=== PATIENT | male | born 1955 | race Hispanic/Latino ===

== ENCOUNTER 2019-12-06 21:16 | Emergency (ER) | payer MEDICAID, OTHER ==
[2019-12-06] MEDS ORDERED: predniSONE 20 MG TAB PO ONE (22:31)
--- NOTE | 2019-12-06 22:31 | Emergency Department Report ---
ED Shortness of Breath HPI - General Chief Complaint: Dyspnea/Respdistress Stated Complaint: HTN Time Seen by Provider: 12/06/19 22:18 Source: EMS Mode of arrival: Stretcher Limitations: No Limitations - History of Present Illness Initial Comments: Mr. Christensen is a 63 yo male with hx of COPD on 2 liters [place] oxygen supplementation who presents with shortness of breath today. [place] like a panic attack. [place] like he could not breath. Has chronic cough. Has chronic sputum production. No wheezing. No chest pain. No hx of HTN. NO hx of cardiac dz. For 2 weeks, Mr. Christensen has had left eye redness with discharge. Received albuterol per EMS. Feels better at this time. Pulmonoloist Dr. Adriana DOUGLAS Complaint: shortness of breath -: Gradual, days(s) (1) Severity: severe Consistency: now resolved Improves With: bronchodilators Known History Of: COPD Associated Symptoms: other (Eye redness discharge) Treatments Prior to Arrival: oxygen, bronchodilator - Related Data Previous Rx's Medication Instructions Recorded Last Taken Type Arformoterol Nebu [Brovana Nebu] 15 mcg IH Q12HRT 30 Days ml 11/03/15 1 Day Ago Rx ~12/05/19 Ipratropium/Albuterol Sulfate 1 ampul IH Q4HRT PRN #10 ampul.neb 11/03/15 1 Day Ago Rx [DUONEB *Not for PRN Use*] ~12/05/19 Doxycycline Hyclate 100 mg PO BID 10 Days #20 tablet. 12/06/19 Unknown Rx Polymyxin B Sulf/Trimethoprim 1 drop OP Q3H 7 Days #1 bottle 12/06/19 Unknown Rx [Polytrim Eye Drops] Prednisone [predniSONE 10 mg 10 mg PO .TAPER #1 tab.ds.pk 12/06/19 Unknown Rx (6-Day Pack, 21 Tabs)] Allergies Allergy/AdvReac Type Severity Reaction Status Date / Time No Known Allergies Allergy Verified 12/06/19 21:46 ED Review of Systems ROS: Stated complaint: HTN Other details as noted in HPI Comment: All other systems reviewed and negative Constitutional: denies: fever, malaise Respiratory: shortness of breath. denies: cough, wheezing Cardiovascular: denies: chest pain Gastrointestinal: denies: abdominal pain Neurological: denies: headache ED Past Medical Hx - Past Medical History Previous Medical History?: Yes Hx Congestive Heart Failure: No Hx Diabetes: No Hx Asthma: No Hx COPD: Yes Hx HIV: No - Surgical History Past Surgical History?: No - Social History Smoking Status: Former Smoker Substance Use Type: None - Medications Home Medications: Home Medications Medication Instructions Recorded Confirmed Last Taken Type Arformoterol Nebu [Brovana Nebu] 15 mcg IH Q12HRT 30 Days ml 11/03/15 12/06/19 1 Day Ago Rx ~12/05/19 Ipratropium/Albuterol Sulfate 1 ampul IH Q4HRT PRN #10 ampul.neb 11/03/15 12/06/19 1 Day Ago Rx [DUONEB *Not for PRN Use*] ~12/05/19 Doxycycline Hyclate 100 mg PO BID 10 Days #20 tablet. 12/06/19 Unknown Rx Polymyxin B Sulf/Trimethoprim 1 drop OP Q3H 7 Days #1 bottle 12/06/19 Unknown Rx [Polytrim Eye Drops] Prednisone [predniSONE 10 mg 10 mg PO .TAPER #1 tab.ds.pk 12/06/19 Unknown Rx (6-Day Pack, 21 Tabs)] ED Physical Exam - General Limitations: No Limitations General appearance: alert, in no apparent distress, other (Speaking full sentences with mild work of breathing) - Head Head exam: Present: atraumatic, normocephalic - Eye Eye exam: Present: normal appearance - ENT ENT exam: Present: mucous membranes moist - Neck Neck exam: Present: normal inspection - Respiratory Respiratory exam: Present: normal lung sounds bilaterally. Absent: respiratory distress, wheezes, rales, rhonchi, chest wall tenderness, accessory muscle use, decreased breath sounds, prolonged expiratory - Cardiovascular Cardiovascular Exam: Present: normal rhythm, tachycardia, normal heart sounds. Absent: systolic murmur, diastolic murmur, rubs, gallop - GI/Abdominal GI/Abdominal exam: Present: soft. Absent: distended, tenderness, guarding, rebound - Rectal Rectal exam: Present: deferred - Neurological Exam Neurological exam: Present: alert, oriented X3 - Psychiatric Psychiatric exam: Present: normal affect, normal mood - Skin Skin exam: Present: warm, dry, intact, normal color. Absent: rash ED Course Vital Signs 12/06/19 12/06/19 12/06/19 21:28 21:31 21:39 Pulse Rate 97 H 105 H 103 H Respiratory 38 H 33 H 26 H Rate Blood Pressure Blood Pressure 190/93 [Left] O2 Sat by Pulse 99 99 Oximetry 12/06/19 12/06/19 12/06/19 21:45 22:01 22:15 Pulse Rate 104 H 101 H 96 H Respiratory 33 H 32 H 33 H Rate Blood Pressure 190/93 183/78 183/78 Blood Pressure [Left] O2 Sat by Pulse 100 97 98 Oximetry 12/06/19 12/06/19 12/06/19 22:31 22:45 23:01 Pulse Rate 98 H 93 H 91 H Respiratory 28 H 23 27 H Rate Blood Pressure 130/70 130/70 120/77 Blood Pressure [Left] O2 Sat by Pulse 89 90 89 Oximetry 12/06/19 12/06/19 23:15 23:31 Pulse Rate 93 H 92 H Respiratory 17 24 Rate Blood Pressure 120/77 120/77 Blood Pressure [Left] O2 Sat by Pulse 90 90 Oximetry ED Medical Decision Making - Lab Data Result diagrams: 12/06/19 22:41 12/06/19 22:41 Critical care attestation.: If time is entered above; I have spent that time in minutes in the direct care of this critically ill patient, excluding procedure time. ED Disposition Clinical Impression: COPD with acute exacerbation, Acute conjunctivitis of left eye Disposition: DC-01 TO HOME OR SELFCARE Is pt being admited?: No Does the pt Need Aspirin: No Condition: Stable Instructions: Conjunctivitis (ED), Chronic Obstructive Pulmonary Disease (ED) Prescriptions: Doxycycline Hyclate 100 mg PO BID 10 Days #20 tablet.dr Polymyxin B Sulf/Trimethoprim [Polytrim Eye Drops] 1 drop OP Q3H 7 Days #1 bottle Prednisone [predniSONE 10 mg (6-Day Pack, 21 Tabs)] 10 mg PO .TAPER #1 tab.ds.pk Referrals: RADHA WHITE MD [Staff Physician] - 3-5 Days YESIKA MCCONNELL MD [Staff Physician] - 3-5 Days
[2019-12-06] MEDS ORDERED: DOXYCYCLINE 100 MG CAPSULE PO ONE (22:32)
--- NOTE | 2019-12-06 22:55 | XRay Report ---
CHEST 1 VIEW INDICATION: Dyspnea. COMPARISON: None. FINDINGS: Support devices: None. Heart: Normal. Lungs/Pleura: Lungs are hyperexpanded. There is scarring in the left lower lung laterally. No consoli dation, significant effusion, or pneumothorax. IMPRESSION: 1. No acute findings. Signer Name: Ej Veliz MD Signed: 12/06/2019 10:51 PM Workstation Name: [email or web address]
[2019-12-06 22:56] LABS: Basophils % (Auto) 0.3 % (0.0-1.8); Eosinophils # (Auto) 0.1 K/mm3 (0.0-0.4); Eosinophils % (Auto) 0.8 % (0.0-4.3); Hematocrit 43.9 % (35.5-45.6); Lymphocytes # (Auto) 0.6 K/mm3 (1.2-5.4); Lymphocytes % (Auto) 5.3 % (13.4-35.0); Mean Corpuscular HGB Conc 32 % (32-34); Mean Corpuscular Volume 93 fl (84-94); Monocytes # (Auto) 0.7 K/mm3 (0.0-0.8); Monocytes % (Auto) 5.8 % (0.0-7.3); Platelet Count 252 K/mm3 (140-440); Red Blood Count 4.75 M/mm3 (3.65-5.03); Red Cell Distribution Width 14.3 % (13.2-15.2)
[2019-12-06 23:10] LABS: Alanine Aminotransferase 13 units/L (7-56); Albumin 4.3 g/dL (3.9-5); BUN/Creatinine Ratio 18; Blood Urea Nitrogen 18 mg/dL (9-20); Hemolysis Index 10
[2019-12-07 00:20] VITALS: BP 145/67
== END 2019-12-07 00:19 | disposition home or self-care (01) ==
LOC: ED 21:16
DX: J44.1 Chronic obstructive pulmonary disease with (acute) exacerbation (principal); H10.32 Unspecified acute conjunctivitis, left eye; Z87.891 Personal history of nicotine dependence; Z79.899 Other long term (current) drug therapy
CPT/HCPCS: 36415; 71045; 80053; 85025; 99284; J7512

== ENCOUNTER 2020-08-23 15:21 | Emergency (ER) | payer MEDICAID ==
[2020-08-23 15:30] VITALS: BP 189/85
[2020-08-23 16:10] LABS: Basophils % (Auto) 0.5 % (0.0-1.8); Eosinophils % (Auto) 0.5 % (0.0-4.3); Hematocrit 40.9 % (35.5-45.6); Lymphocytes # (Auto) 0.7 K/mm3 (1.2-5.4); Lymphocytes % (Auto) 8.8 % (13.4-35.0); Mean Corpuscular HGB Conc 32 % (32-34); Mean Corpuscular Volume 101 fl (84-94); Monocytes # (Auto) 0.7 K/mm3 (0.0-0.8); Monocytes % (Auto) 9.1 % (0.0-7.3); Platelet Count 208 K/mm3 (140-440); Red Blood Count 4.06 M/mm3 (3.65-5.03); Red Cell Distribution Width 17.5 % (13.2-15.2)
[2020-08-23 16:15] LABS: BUN/Creatinine Ratio 22; Blood Urea Nitrogen 24 mg/dL (9-20); Calcium 9.5 mg/dL (8.4-10.2); Hemolysis Index 11
--- NOTE | 2020-08-23 16:39 | XRay Report ---
CHEST 2 VIEWS INDICATION / CLINICAL INFORMATION: gen weakness. COMPARISON: Chest x-ray 12/06/2019. CTA abdomen and pelvis on 05/20/2020. FINDINGS: SUPPORT DEVICES: None. HEART / MEDIASTINUM: There is mild cardiomegaly. LUNGS / PLEURA: There is mild interstitial pulmonary edema. There is a stable subpleural cyst and lef t lower lung. No pneumothorax. ADDITIONAL FINDINGS: No significant additional findings. IMPRESSION: 1. Findings likely indicating CHF with mild cardiomegaly and mild interstitial edema. Signer Name: Jude Otto MD Signed: 08/23/2020 4:35 PM Workstation Name: [id number]
== END 2020-08-23 16:30 | disposition left against medical advice (07) ==
LOC: ED 15:21
DX: R44.3 Hallucinations, unspecified (principal); Z53.21 Procedure and treatment not carried out due to patient leaving prior to being seen by health care provider
CPT/HCPCS: 36415; 71046; 80048; 85025; 93005

== ENCOUNTER 2020-08-27 08:38 | Inpatient (IN) | payer MEDICAID ==
[2020-08-27] MEDS ORDERED: methylPREDNISolone Sod Succinate 125 MG/2 ML INJ IV ONE (09:33)
--- NOTE | 2020-08-27 09:33 | Emergency Department Report ---
HPI - General Chief Complaint: Dyspnea/Respdistress Time Seen by Provider: 08/27/20 09:10 - HPI HPI: This is a 64-year-old male who presents to the emergency department via EMS with a complaint of some shortness of breath, dizziness, hallucinations, and a fall. Patient says that when his oxygen gets low that he starts to hallucinate and gets dizzy. Earlier today he had a fall in which he hit his head on his bedside dresser. The patient has a history of COPD for which he has home oxygen dependent on 2 L via nasal cannula. However the patient says that he is not sure whether the oxygen machine at home is working appropriately. The shortness of breath has been going on for the past 3 to 4 days. He has been using his home inhaler and nebulizer without much relief. He denies any chest pain, cough, fever, headache, lower extremity swelling. The patient's crystal report developer is Dr. Dill. No recent travel or sick contacts at home. No known exposure to anyone with COVID-19. ED Past Medical Hx - Past Medical History Previous Medical History?: Yes Hx Congestive Heart Failure: No Hx Diabetes: No Hx Asthma: No Hx COPD: Yes Hx HIV: No - Social History Smoking Status: Former Smoker Substance Use Type: None - Medications Home Medications: Home Medications Medication Instructions Recorded Confirmed Last Taken Type Arformoterol Nebu [Brovana Nebu] 15 mcg IH Q12HRT 30 Days ml 11/03/15 12/06/19 1 Day Ago Rx ~12/05/19 Ipratropium/Albuterol Sulfate 1 ampul IH Q4HRT PRN #10 ampul.neb 11/03/15 12/06/19 1 Day Ago Rx [DUONEB *Not for PRN Use*] ~12/05/19 Doxycycline Hyclate 100 mg PO BID 10 Days #20 tablet. 12/06/19 Unknown Rx Polymyxin B Sulf/Trimethoprim 1 drop OP Q3H 7 Days #1 bottle 12/06/19 Unknown Rx [Polytrim Eye Drops] Prednisone [predniSONE 10 mg 10 mg PO .TAPER #1 tab.ds.pk 12/06/19 Unknown Rx (6-Day Pack, 21 Tabs)] ED Review of Systems ROS: Stated complaint: SOB X4 HOURS Other details as noted in HPI Comment: All other systems reviewed and negative Constitutional: denies: chills, fever Eyes: denies: eye pain, vision change ENT: denies: ear pain, throat pain Respiratory: shortness of breath, wheezing Cardiovascular: denies: chest pain, palpitations, edema Gastrointestinal: denies: abdominal pain, vomiting Genitourinary: denies: dysuria, discharge Musculoskeletal: denies: back pain, arthralgia Skin: denies: rash, lesions Neurological: other (dizziness/lightheaded). denies: headache Physical Exam - Physical Exam Vital Signs: Vital Signs 08/27/20 09:10 Temperature 99.1 F Pulse Rate 71 Respiratory 20 Rate Blood Pressure 140/69 Blood Pressure 140/69 [Right] O2 Sat by Pulse 96 Oximetry Physical Exam: GENERAL: The patient is well-developed well-nourished. HENT: Normocephalic. Atraumatic. Patient has moist mucous membranes. EYES: Extraocular motions are intact. NECK: Supple. Trachea is midline. CHEST/LUNGS: Mild wheezing throughout the chest. No tachypnea or accessory muscle use. There is no respiratory distress noted. HEART/CARDIOVASCULAR: Regular. There is no tachycardia. There is no murmur. ABDOMEN: Abdomen is soft, nontender. Patient has normal bowel sounds. SKIN: Skin is warm and dry. NEURO: The patient is awake, alert, and oriented. The patient is cooperative. The patient has no focal neurologic deficits. Normal speech. MUSCULOSKELETAL: There is no tenderness or deformity. There is no limitation range of motion. ED Course Vital Signs 08/27/20 09:10 Temperature 99.1 F Pulse Rate 71 Respiratory 20 Rate Blood Pressure 140/69 Blood Pressure 140/69 [Right] O2 Sat by Pulse 96 Oximetry - Reevaluation(s) Reevaluation #1: 08/27/20 13:44 Lab Results 08/27/20 08/27/20 08/27/20 Range/Units 09:53 09:53 09:53 WBC 6.5 (4.5-11.0) K/mm3 RBC 4.16 (3.65-5.03) M/mm3 Hgb 13.2 (11.8-15.2) gm/dl Hct 42.8 (35.5-45.6) % MCV 103 H (84-94) fl MCH 32 (28-32) pg MCHC 31 L (32-34) % RDW 18.0 H (13.2-15.2) % Plt Count 197 (140-440) K/mm3 Lymph % (Auto) 8.2 L (13.4-35.0) % [place] % (Auto) 9.3 H (0.0-7.3) % Eos % (Auto) 0.8 (0.0-4.3) % Baso % (Auto) 0.4 (0.0-1.8) % Lymph # (Auto) 0.5 L (1.2-5.4) K/mm3 [place] # (Auto) 0.6 (0.0-0.8) K/mm3 Eos # (Auto) 0.0 (0.0-0.4) K/mm3 Baso # (Auto) 0.0 (0.0-0.1) K/mm3 Seg Neutrophils % 81.3 H (40.0-70.0) % Seg Neutrophils # 5.3 (1.8-7.7) K/mm3 PT 13.0 (12.2-14.9) Sec. INR 0.96 (0.87-1.13) ABG pH (7.350-7.450) pH Units ABG pCO2 mm Hg ABG pO2 (80.0-90.0) mm Hg ABG HCO3 (20.0-26.0) mmol/L ABG O2 Saturation (95.0-99.0) % ABG O2 Content (0.0-44) ABG Base Excess (-2.0-3.0) mmol/L ABG Hemoglobin (14.0-18.0) gm/dl ABG Carboxyhemoglobin (0.0-5.0) % ABG Methemoglobin (0.0-1.5) % Oxyhemoglobin (95.0-99.0) % FiO2 % Sodium 142 (137-145) mmol/L Potassium 4.8 (3.6-5.0) mmol/L Chloride 94.9 L (98-107) mmol/L Carbon Dioxide 48 H* D (22-30) mmol/L Anion Gap 4 mmol/L BUN 32 H (9-20) mg/dL Creatinine 1.1 (0.8-1.3) mg/dL Estimated GFR > 60 ml/min BUN/Creatinine Ratio 29 % Glucose 137 H (75-100) mg/dL Calcium 9.2 (8.4-10.2) mg/dL Troponin T 0.090 H (0.00-0.029) ng/mL NT-Pro-B Natriuret Pep 1916 H (0-900) pg/mL Triglycerides 129 (2-149) mg/dL Cholesterol 210 H (50-199) mg/dL LDL Cholesterol Direct 138 H (50-130) mg/dL HDL Cholesterol 48 (40-59) mg/dL Cholesterol/HDL Ratio 4.37 % // Range/Units 10:30 WBC (4.5-11.0) K/mm3 RBC (3.65-5.03) M/mm3 Hgb (11.8-15.2) gm/dl Hct (35.5-45.6) % MCV (84-94) fl MCH (28-32) pg MCHC (32-34) % RDW (13.2-15.2) % Plt Count (140-440) K/mm3 Lymph % (Auto) (13.4-35.0) % [place] % (Auto) (0.0-7.3) % Eos % (Auto) (0.0-4.3) % Baso % (Auto) (0.0-1.8) % Lymph # (Auto) (1.2-5.4) K/mm3 [place] # (Auto) (0.0-0.8) K/mm3 Eos # (Auto) (0.0-0.4) K/mm3 Baso # (Auto) (0.0-0.1) K/mm3 Seg Neutrophils % (40.0-70.0) % Seg Neutrophils # (1.8-7.7) K/mm3 PT (12.2-14.9) Sec. INR (0.87-1.13) ABG pH 7.314 L (7.350-7.450) pH Units ABG pCO2 86.5 mm Hg ABG pO2 64.1 L (80.0-90.0) mm Hg ABG HCO3 42.9 H (20.0-26.0) mmol/L ABG O2 Saturation 93.4 L (95.0-99.0) % ABG O2 Content 16.3 (0.0-44) ABG Base Excess 13.1 H (-2.0-3.0) mmol/L ABG Hemoglobin 12.8 L (14.0-18.0) gm/dl ABG Carboxyhemoglobin 2.4 (0.0-5.0) % ABG Methemoglobin 0.7 (0.0-1.5) % Oxyhemoglobin 90.5 L (95.0-99.0) % FiO2 28 % Sodium (137-145) mmol/L Potassium (3.6-5.0) mmol/L Chloride (98-107) mmol/L Carbon Dioxide (22-30) mmol/L Anion Gap mmol/L BUN (9-20) mg/dL Creatinine (0.8-1.3) mg/dL Estimated GFR ml/min BUN/Creatinine Ratio % Glucose (75-100) mg/dL Calcium (8.4-10.2) mg/dL Troponin T (0.00-0.029) ng/mL NT-Pro-B Natriuret Pep (0-900) pg/mL Triglycerides (2-149) mg/dL Cholesterol (50-199) mg/dL LDL Cholesterol Direct (50-130) mg/dL HDL Cholesterol (40-59) mg/dL Cholesterol/HDL Ratio % - Consultations Consultation #1: 08/27/20 10:53 I spoke with ESVIN Godinez for [facility], in regards to the patients presentation and elevated troponin. As the patient is not having any chest pain and the troponin level of 0.09 it is positive but not excessively high, the patient does not need to be anticoagulated on heparin at this time. They will see the patient as a consult. - ABG Interpretation Ph: 7.314 PCO2: 86 PO2: 64 Bicarbonate: 42 Interpretation: respiratory acidosis, metabolic alkalosis, other (hypoxemia) ED Medical Decision Making - Lab Data Result diagrams: 08/27/20 09:53 08/27/20 09:53 - EKG Data -: EKG Interpreted by Me EKG shows normal: sinus rhythm, axis, intervals, QRS complexes, ST-T waves (T wave inversion to the lateral and inferior leads) Rate: normal - EKG Data When compared to previous EKG there are: no significant change Interpretation: unchanged when compared t (08/23/20) - Radiology Data Radiology results: report reviewed, image reviewed interpreted by me: Chest x-ray shows some areas of atelectasis and some mild interstitial fluid. No obvious pneumonia. No pneumothorax. CT HEAD WITHOUT CONTRAST INDICATION : Fall, head injury one day ago. TECHNIQUE: Axial imaging performed from the skull apex through the skull base without the use of contrast. Sagittal and coronal reformatted images. All CT scans at this location are performed using CT dose reduction for ALARA by means of automated exposure control. COMPARISON: None FINDINGS: Parenchyma: No acute intracranial hemorrhage or parenchymal abnormality. Ventricles: Ventricles are normal in size and appear symmetric. Bones: No acute osseous abnormality. Sinuses: Sinuses and mastoid air cells are clear. Soft tissues: Soft tissues including the orbits appear normal. IMPRESSION: No acute abnormality. - Medical Decision Making This patient presents to the emergency department with complaints of shortness of breath and feeling like his oxygen saturation has dropped. He complains of having some hallucinations. At the time of my examination the patient is awake and oriented. However there is a previous record from a few days ago, when the patient came to the emergency department but was not yet seen by one of the providers, with a triage note that says the patient's daughter has found him confused at times and has found him at strange locations within their home. The patient says that he had a fall earlier today and hit his head on the bedside dresser. He does have a small abrasion over his eye. CT scan of the head without contrast does not show any bleed, shift, mass, ischemia, skull fracture, or any other acute process. Chest x-ray does not show any pneumonia, pneumothorax and was read by radiology as showing no acute process. Patient's ABG is consistent with both metabolic alkalosis and respiratory acidosis, as well as hypoxemia. Patient is hypercapnic. Labs also show an elevated troponin level of 0.09 and an elevated proBNP of about 2000. Cardiology was contacted and consulted. Patient will be admitted to the hospital for further evaluation and treatment was accepted for admission by the hospitalist, Dr. Stanley. Critical Care Time: Yes Critical care time in (mins) excluding proc time.: 35 Critical care attestation.: If time is entered above; I have spent that time in minutes in the direct care of this critically ill patient, excluding procedure time. Critical care time w as spent on this patient in doing his initial evaluation, multiple reevaluations, ordering and interpretation of labs and imaging, discussion with the cardiology service and hospitalist service, multiple discussions with the patient. Critical Care Time: 35 minutes ED Disposition Clinical Impression: Acute exacerbation of chronic obstructive pulmonary disease (COPD), Hypoxemia, Acute on chronic respiratory failure with hypoxia and hypercapnia, Elevated troponin Hypertension Qualifiers: Hypertension type: essential hypertension Qualified Code(s): I10 - Essential (primary) hypertension Disposition: OP ADMIT IP TO THIS HOSP Is pt being admited?: Yes Condition: Serious Time of Disposition: 13:51
[2020-08-27] MEDS ORDERED: IPRATROPIUM/ALBUTEROL SULFATE 3 ML AMPUL.NEB IH ONE (09:34)
[2020-08-27 10:14] LABS: Basophils % (Auto) 0.4 % (0.0-1.8); Eosinophils % (Auto) 0.8 % (0.0-4.3); Lymphocytes # (Auto) 0.5 K/mm3 (1.2-5.4); Lymphocytes % (Auto) 8.2 % (13.4-35.0); Mean Corpuscular HGB Conc 31 % (32-34); Mean Corpuscular Volume 103 fl (84-94); Monocytes # (Auto) 0.6 K/mm3 (0.0-0.8); Monocytes % (Auto) 9.3 % (0.0-7.3); Platelet Count 197 K/mm3 (140-440); Red Blood Count 4.16 M/mm3 (3.65-5.03)
[2020-08-27 10:15] LABS: Hematocrit 42.8 % (35.5-45.6); Hemoglobin 13.2 gm/dl (11.8-15.2); INR 0.96 (0.87-1.13)
[2020-08-27 10:29] LABS: BUN/Creatinine Ratio 29; Blood Urea Nitrogen 32 mg/dL (9-20); Calcium 9.2 mg/dL (8.4-10.2); Hemolysis Index 2
[2020-08-27 10:39] LABS: ABG Base Excess 13.1 mmol/L (-2.0-3.0); ABG HCO3 42.9 mmol/L (20.0-26.0); ABG Methemoglobin 0.7 % (0.0-1.5); ABG Oxygen Saturation 93.4 % (95.0-99.0); ABG PCO2 86.5 mm Hg; ABG PH 7.314 pH Units (7.350-7.450); ABG PO2 64.1 mm Hg (80.0-90.0)
--- NOTE | 2020-08-27 10:43 | XRay Report ---
CHEST 1 VIEW INDICATION: SOB COMPARISON: 08/23/2020 FINDINGS: Support devices: None Heart: Stable. Lungs/Pleura: Interstitial edema has cleared. Parenchymal density in the left mid to lower lung is un changed from previous exams and thought to represent scarring. No pleural fluid. IMPRESSION: 1. Improvement, with no acute disease on today's exam. Signer Name: Christopher Hector MD Signed: 08/27/2020 10:38 AM Workstation Name: [email or web address]
[2020-08-27 10:51] LABS: Chol/HDL Ratio 4.37 %; HDL Cholesterol 48 mg/dL (40-59); LDL Cholesterol,Direct 138 mg/dL (50-130)
--- NOTE | 2020-08-27 10:58 | Cat Scan Report ---
CT HEAD WITHOUT CONTRAST INDICATION : Fall, head injury one day ago. TECHNIQUE: Axial imaging performed from the skull apex through the skull base without the use of con trast. Sagittal and coronal reformatted images. All CT scans at this location are performed using C T dose reduction for ALARA by means of automated exposure control. COMPARISON: None FINDINGS: Parenchyma: No acute intracranial hemorrhage or parenchymal abnormality. Ventricles: Ventricles are normal in size and appear symmetric. Bones: No acute osseous abnormality. Sinuses: Sinuses and mastoid air cells are clear. Soft tissues: Soft tissues including the orbits appear normal. IMPRESSION: No acute abnormality. Signer Name: Demetrius Lopez Jr, MD Signed: 08/27/2020 10:54 AM Workstation Name: [id number]
--- NOTE | 2020-08-27 12:15 | History and Physical Report ---
History of Present Illness Chief complaint: I am short of breath and I fell down History of present illness: 64 YO Male with COPD, Chronic Respiratory Failure on Home Oxygen, Obesity Hypoventilation Syndrome presents to ED for evaluation. Patient states that he has experienced shortness of breath, dizziness, weakness which was followed by a fall. Patient states that he has experienced shortness of breath, weakness, decreased exercise tolerance, orthopnea, paroxysmal nocturnal dyspnea over the past 3 to 4 days with persistent symptoms over the same timeframe. Patient reports lack of relief with increased nebulizer and inhaler use. EMS notified and upon arrival the patient was found to be in distress and subsequently transported to [facility] for further care and evaluation of the aforementioned symptoms. Patient seen and evaluated in the emergency department. All lab and imaging studies reviewed. The patient was found to have a pulse oximetry of 77% on room air which is consistent with acute hypoxemic respiratory failure. The patient was placed on increased supplemental oxygen with mild relief in sympt oms. Patient also found to have symptoms consistent with CHF decompensation as well as laboratory values consistent with type II NSTEMI. Cardiology team consulted. Patient admitted to telemetry and initiated on CHF protocol due to increased risk of cardiac decompensation. Patient denies fever, chills, palpitations, productive cough, skin rash, recent ill contacts, prolonged travel/immobility, unilateral leg pain, calf pain, individual/family history of DVT/PE/bleeding/blood clotting disorders, or known exposure to COVID-19. Prior admission on 10/26/2015 reviewed. All medication listed at time of admission has been reconciled. Advanced care planning conducted in the emergency department. Past History Past Medical History: COPD, other (See HPI) Past Surgical History: No surgical history, Other (Reviewed) Social history: single. denies: smoking, alcohol abuse Family history: hypertension Medications and Allergies Allergies Allergy/AdvReac Type Severity Reaction Status Date / Time No Known Allergies Allergy Verified 12/06/19 21:46 Home Medications Medication Instructions Recorded Confirmed Last Taken Type Arformoterol Nebu [Brovana Nebu] 15 mcg IH Q12HRT 30 Days ml 11/03/15 12/06/19 1 Day Ago Rx ~12/05/19 Ipratropium/Albuterol Sulfate 1 ampul IH Q4HRT PRN #10 ampul.neb 11/03/15 12/06/19 1 Day Ago Rx [DUONEB *Not for PRN Use*] ~12/05/19 Doxycycline Hyclate 100 mg PO BID 10 Days #20 tablet. 12/06/19 Unknown Rx Polymyxin B Sulf/Trimethoprim 1 drop OP Q3H 7 Days #1 bottle 12/06/19 Unknown Rx [Polytrim Eye Drops] Prednisone [predniSONE 10 mg 10 mg PO .TAPER #1 tab.ds.pk 12/06/19 Unknown Rx (6-Day Pack, 21 Tabs)] Review of Systems Constitutional: weakness, no weight loss, no weight gain, no fever, no chills Ears, nose, mouth and throat: no ear pain, no ear discharge, no decreased hearing, no nose pain, no nasal congestion Cardiovascular: orthopnea, syncope, shortness of breath, dyspnea on exertion, paroxysmal nocturnal dyspnea, decreased exercise tolerance, no palpitations Respiratory: no cough, no cough with sputum, no excessive sputum Gastrointestinal: no abdominal pain, no nausea, no vomiting, no diarrhea, no constipation Genitourinary Male: no hematuria, no flank pain, no discharge, no urinary frequency, no urinary hesitancy Rectal: no pain, no incontinence, no bleeding Musculoskeletal: no neck stiffness, no neck pain, no shooting arm pain, no arm numbness/tingling Integumentary: no rash, no pruritis, no redness, no sores, no wounds Neurological: no transient paralysis, no paralysis, no weakness, no parathesias, no numbness, no tingling Psychiatric: no memory loss, no change in sleep habits, no sleep disturbances, no insomnia, no hypersomnia, no suicidal ideation Endocrine: no cold intolerance, no heat intolerance, no polyphagia, no excessive thirst, no polydipsia, no nocturia Hematologic/Lymphatic: no easy bruising, no easy bleeding, no lymphadenopathy, no lymphedema Allergic/Immunologic: no urticaria, no wheezing, no anaphylaxis, no angioedema Exam - Constitutional Vitals: Temp Pulse Resp BP Pulse Ox 99.1 F 66 20 140/69 94 08/27/20 09:10 08/27/20 10:18 08/27/20 10:34 08/27/20 10:45 08/27/20 10:45 General appearance: Present: mild distress - EENT Eyes: Present: PERRL ENT: hearing intact, clear oral mucosa - Neck Neck: Present: supple, normal ROM - Respiratory Respiratory effort: labored, accessory muscle use Respiratory: bilateral: CTA, rales - Cardiovascular Heart Sounds: Present: S1 & S2. Absent: rub, click - Extremities Extremities: pulses symmetrical Extremity abnormal: edema Peripheral Pulses: within normal limits - Abdominal General gastrointestinal: Present: soft, non-tender, non-distended, normal bowel sounds Male genitourinary: Present: normal - Integumentary Integumentary: Present: clear, warm, dry - Musculoskeletal Musculoskeletal: gait normal, strength equal bilaterally - Psychiatric Psychiatric: appropriate mood/affect, intact judgment & insight - Neurologic Neurologic: CNII-XII intact, moves all extremities HEART Score - HEART Score Troponin: Troponin T 0.090 ng/mL (0.00-0.029) H 08/27/20 09:53 Results - Labs CBC & Chem 7: 08/27/20 09:53 08/27/20 09:53 Labs: Abnormal lab results 08/27/20 08/27/20 08/27/20 Range/Units 09:53 09:53 10:30 MCV 103 H (84-94) fl MCHC 31 L (32-34) % RDW 18.0 H (13.2-15.2) % Lymph % (Auto) 8.2 L (13.4-35.0) % [place] % (Auto) 9.3 H (0.0-7.3) % Lymph # (Auto) 0.5 L (1.2-5.4) K/mm3 Seg Neutrophils % 81.3 H (40.0-70.0) % ABG pH 7.314 L (7.350-7.450) pH Units ABG pO2 64.1 L (80.0-90.0) mm Hg ABG HCO3 42.9 H (20.0-26.0) mmol/L ABG O2 Saturation 93.4 L (95.0-99.0) % ABG Base Excess 13.1 H (-2.0-3.0) mmol/L ABG Hemoglobin 12.8 L (14.0-18.0) gm/dl Oxyhemoglobin 90.5 L (95.0-99.0) % Chloride 94.9 L (98-107) mmol/L Carbon Dioxide 48 H* D (22-30) mmol/L BUN 32 H (9-20) mg/dL Glucose 137 H (75-100) mg/dL Troponin T 0.090 H (0.00-0.029) ng/mL NT-Pro-B Natriuret Pep 1916 H (0-900) pg/mL Cholesterol 210 H (50-199) mg/dL LDL Cholesterol Direct 138 H (50-130) mg/dL Assessment and Plan - Patient Problems (1) Acute CHF (congestive heart failure) Current Visit: No Status: Acute Qualifiers: Heart failure type: systolic Qualified Code(s): I50.21 - Acute systolic (congestive) heart failure Plan to address problem: Strict I/O, monitor urine output every shift, daily weight, afterload reduction, blood pressure control, BNP, thyroid panel, magnesium level, echocardiogram ordered and is pending at time of admission, cardiology team consulted. (2) Acute on chronic respiratory failure with hypoxia and hypercapnia Current Visit: Yes Status: Acute Plan to address problem: Supplemental oxygen, pulse oximetry, chest x-ray, nebulizer therapy, noninvasive positive pressure ventilation as clinically indicated. (3) NSTEMI (non-ST elevated myocardial infarction) Current Visit: Yes Status: Acute Plan to address problem: Type II NSTEMI: Cardiology team consulted, serial cardiac enzymes, EKG, telemetry monitoring, morphine, submental oxygen, nitro, aspirin, supportive care. (4) Obesity hypoventilation syndrome Current Visit: Yes Status: Acute Plan to address problem: Supplemental oxygen, pulse oximetry, balanced diet, increase physical activity at discharge, outpatient pulmonary follow-up for sleep study. (5) DVT prophylaxis Current Visit: Yes Status: Acute Plan to address problem: SCD to bilateral lower extremities while in bed, patient is ambulatory (6) Advance care planning Current Visit: Yes Status: Acute Plan to address problem: Disease education conducted, patient is full code, prognosis discussed, care plan discussed, patient knowledges understanding and agreement with care plan.
[2020-08-27] MEDS ORDERED: ONDANSETRON 4 MG/2 ML INJ IV PRN (12:19)
[2020-08-27] MEDS ORDERED: ACETAMINOPHEN 325 MG TAB PO PRN (12:19)
[2020-08-27] MEDS ORDERED: ALBUTEROL 2.5 MG/3 ML NEBU IH PRN (12:19)
--- NOTE | 2020-08-27 12:35 | Consultation ---
History of Present Illness Consult date: 08/27/20 Consult reason: elevated troponin History of present illness: This is a 64-year old male with chronic lung disease, COPD on home oxygen who presents to this hospital with shortness of breath, dizziness and confusion. Patient reports his portable oxygen tank showed he ran out of oxygen but he believe his machine was working appropriately. Patient also sustained a laceration above his right eyelid as he was getting out of bed, hitting his head on the dresser. Patient denies loss of consciousness. Head CT scan reports no acute abnormality and a chest x-ray is negative for acute process. A cardiac consultation has been requested for mild elevation of troponin measurement. Patient denies chest pain and denies palpitations. An ECG is sinus rhythm, with diffuse Twave abnormalities. No significant change from prior ECG tracings. There is no history of coronary artery disease. In fact, he underwent a cardiac cath at [facility] in April that showed no significant coronary artery disease, ejection fraction 60%. Medications and Allergies Allergies Allergy/AdvReac Type Severity Reaction Status Date / Time No Known Allergies Allergy Verified 12/06/19 21:46 Home Medications Medication Instructions Recorded Confirmed Last Taken Type Arformoterol Nebu [Brovana Nebu] 15 mcg IH Q12HRT 30 Days ml 11/03/15 12/06/19 1 Day Ago Rx ~12/05/19 Ipratropium/Albuterol Sulfate 1 ampul IH Q4HRT PRN #10 ampul.neb 11/03/15 12/06/19 1 Day Ago Rx [DUONEB *Not for PRN Use*] ~12/05/19 Doxycycline Hyclate 100 mg PO BID 10 Days #20 tablet. 12/06/19 Unknown Rx Polymyxin B Sulf/Trimethoprim 1 drop OP Q3H 7 Days #1 bottle 12/06/19 Unknown Rx [Polytrim Eye Drops] Prednisone [predniSONE 10 mg 10 mg PO .TAPER #1 tab.ds.pk 12/06/19 Unknown Rx (6-Day Pack, 21 Tabs)] Physical Examination Vital Signs Pulse Ox 96 08/27/20 09:01 Results 08/27/20 09:53 08/27/20 09:53 Coagulation 08/27/20 Range/Units 09:53 PT 13.0 (12.2-14.9) Sec. INR 0.96 (0.87-1.13) Lipids 08/27/20 Range/Units 09:53 Triglycerides 129 (2-149) mg/dL Cholesterol 210 H (50-199) mg/dL HDL Cholesterol 48 (40-59) mg/dL Cholesterol/HDL Ratio 4.37 % CBC 08/27/20 Range/Units 09:53 WBC 6.5 (4.5-11.0) K/mm3 RBC 4.16 (3.65-5.03) M/mm3 Hgb 13.2 (11.8-15.2) gm/dl Hct 42.8 (35.5-45.6) % Plt Count 197 (140-440) K/mm3 Lymph # (Auto) 0.5 L (1.2-5.4) K/mm3 [place] # (Auto) 0.6 (0.0-0.8) K/mm3 Eos # (Auto) 0.0 (0.0-0.4) K/mm3 Baso # (Auto) 0.0 (0.0-0.1) K/mm3 Comprehensive Metabolic Panel 08/27/20 Range/Units 09:53 Sodium 142 (137-145) mmol/L Potassium 4.8 (3.6-5.0) mmol/L Chloride 94.9 L (98-107) mmol/L Carbon Dioxide 48 H* D (22-30) mmol/L BUN 32 H (9-20) mg/dL Creatinine 1.1 (0.8-1.3) mg/dL Glucose 137 H (75-100) mg/dL Calcium 9.2 (8.4-10.2) mg/dL Assessment and Plan Elevated troponin, nonspecific 04/2020 [facility]: no significant CAD, LVEF 60%. Abnormal ECG unchanged from previous Acute hypoxic respiratory failure COPD on home O2 Hypertension No cardiac workup indicated for nonspecific elevated troponin in the setting of hypoxic respiratory failure. Will pursue a conservative cardiac management.
[2020-08-27] MEDS ORDERED: FUROSEMIDE 20 MG/2 ML INJ ONE (18:16)
[2020-08-27] MEDS: FUROSEMIDE 20 MG/2 ML INJ IV SCH (18:18)
[2020-08-28 05:22] LABS: Basophils % (Auto) 0.1 % (0.0-1.8); Eosinophils % (Auto) 0.1 % (0.0-4.3); Lymphocytes # (Auto) 0.7 K/mm3 (1.2-5.4); Lymphocytes % (Auto) 10.1 % (13.4-35.0); Mean Corpuscular HGB Conc 31 % (32-34); Mean Corpuscular Volume 102 fl (84-94); Monocytes # (Auto) 0.8 K/mm3 (0.0-0.8); Monocytes % (Auto) 11.4 % (0.0-7.3); Platelet Count 210 K/mm3 (140-440); Red Blood Count 4.08 M/mm3 (3.65-5.03); Red Cell Distribution Width 18.2 % (13.2-15.2)
[2020-08-28 05:23] LABS: Hemoglobin 12.9 gm/dl (11.8-15.2)
[2020-08-28 05:24] LABS: Hematocrit 41.6 % (35.5-45.6)
[2020-08-28 05:36] LABS: Alanine Aminotransferase 11 units/L (7-56); Albumin 3.5 g/dL (3.9-5); BUN/Creatinine Ratio 29; Blood Urea Nitrogen 29 mg/dL (9-20); Calcium 9.3 mg/dL (8.4-10.2); Hemolysis Index 13
[2020-08-28] MEDS ORDERED: FUROSEMIDE 20 MG/2 ML INJ ONE ×2 (05:58→19:23)
[2020-08-28] MEDS: FUROSEMIDE 20 MG/2 ML INJ IV SCH ×2 (06:35→19:26)
[2020-08-28] MEDS: POLYMYXIN B SULF OP SCH ×5 (09:30→22:24)
[2020-08-28] MEDS: TRIMETHOPRIM OP SCH ×5 (09:30→22:24)
--- NOTE | 2020-08-28 11:07 | Progress Note ---
Assessment and Plan - Patient Problems (1) Hypertension Current Visit: Yes Status: Acute (2) Acute exacerbation of chronic obstructive pulmonary disease (COPD) Current Visit: Yes Status: Acute (3) Elevated troponin Current Visit: Yes Status: Acute Subjective Date of service: 08/28/20 Interval history: FEELING OK TODAY. Objective Vital Signs Pulse Resp BP Pulse Ox 08/28/20 06:01 69 21 140/32 08/28/20 05:01 72 17 162/79 94 08/28/20 04:01 78 23 162/79 93 08/28/20 03:07 73 17 151/67 95 08/28/20 02:12 93 08/28/20 02:01 71 19 151/67 08/28/20 01:19 82 23 163/82 08/27/20 22:07 163/82 08/27/20 20:01 18 163/82 08/27/20 19:01 21 163/82 08/27/20 18:31 77 19 157/91 99 08/27/20 18:15 69 21 157/91 97 08/27/20 18:11 157/91 95 08/27/20 16:30 157/91 90 08/27/20 16:15 157/91 90 08/27/20 16:01 157/91 97 08/27/20 15:56 157/91 77 L 08/27/20 15:15 157/91 94 08/27/20 15:01 157/91 94 08/27/20 14:45 157/91 93 08/27/20 14:31 157/91 93 08/27/20 14:15 157/91 95 08/27/20 14:01 157/91 92 08/27/20 13:45 157/91 96 08/27/20 13:31 157/91 94 08/27/20 13:15 157/91 95 08/27/20 13:01 157/91 94 08/27/20 12:45 139/75 90 08/27/20 12:31 139/75 87 08/27/20 12:15 139/75 94 08/27/20 12:01 148/57 95 08/27/20 11:45 148/57 94 08/27/20 11:31 148/57 96 08/27/20 11:15 148/57 96 - Physical Examination General: No Apparent Distress, Other (ORIENTED) HEENT: Positive: PERRL Neck: Positive: neck supple Cardiac: Positive: Reg Rate and Rhythm Lungs: Positive: clear to auscultation, Decreased Breath Sounds Abdomen: Positive: Soft, Other (NT,,OBESE) Skin: Positive: Clear (LIMITED EX.) Extremities: Present: edema (NO CCE) - Labs and Meds Cardiac Enzymes 08/28/20 Range/Units 04:40 AST 15 (5-40) units/L CBC 08/28/20 Range/Units 04:40 WBC 6.7 (4.5-11.0) K/mm3 RBC 4.08 (3.65-5.03) M/mm3 Hgb 12.9 (11.8-15.2) gm/dl Hct 41.6 (35.5-45.6) % Plt Count 210 (140-440) K/mm3 Lymph # (Auto) 0.7 L (1.2-5.4) K/mm3 [place] # (Auto) 0.8 (0.0-0.8) K/mm3 Eos # (Auto) 0.0 (0.0-0.4) K/mm3 Baso # (Auto) 0.0 (0.0-0.1) K/mm3 Comprehensive Metabolic Panel 08/28/20 Range/Units 04:40 Sodium 143 (137-145) mmol/L Potassium 5.6 H (3.6-5.0) mmol/L Chloride 96.0 L (98-107) mmol/L Carbon Dioxide 43 H* (22-30) mmol/L BUN 29 H (9-20) mg/dL Creatinine 1.0 (0.8-1.3) mg/dL Glucose 103 H (75-100) mg/dL Calcium 9.3 (8.4-10.2) mg/dL AST 15 (5-40) units/L ALT 11 (7-56) units/L Alkaline Phosphatase 81 (35-129) units/L Total Protein 6.4 (6.3-8.2) g/dL Albumin 3.5 L (3.9-5) g/dL
[2020-08-28 12:53] LABS: Creatine Kinase MB 4.8 ng/mL (0.0-4.0)
--- NOTE | 2020-08-28 14:44 | Progress Note ---
Assessment and Plan Assessment and plan: 64 YO Male with COPD, Chronic Respiratory Failure on Home Oxygen, Obesity Hypoventilation Syndrome presents to ED for evaluation. Patient states that he has experienced shortness of breath, dizziness, weakness which was followed by a fall. Patient states that he has experienced shortness of breath, weakness, decreased exercise tolerance, orthopnea, paroxysmal nocturnal dyspnea over the past 3 to 4 days with persistent symptoms over the same timeframe. Patient reports lack of relief with increased nebulizer and inhaler use. EMS notified and upon arrival the patient was found to be in distress and subsequently transported to [facility] for further care and evaluation of the aforementioned symptoms. Patient seen and evaluated in the emergency department. All lab and imaging studies reviewed. The patient was found to have a pulse oximetry of 77% on room air which is consistent with acute hypoxemic respiratory failure. The patient was placed on increased supplemental oxygen with mild relief in symptoms. Patient also found to have symptoms consistent with CHF decompensation as well as laboratory values consistent with type II NSTEMI. Cardiology team consulted. Patient admitted to telemetry and initiated on CHF protocol due to increased risk of cardiac decompensation. Patient denies fever, chills, palpitations, productive cough, skin rash, recent ill contacts, prolonged travel/immobility, unilateral leg pain, calf pain, individual/family history of DVT/PE/bleeding/blood clotting disorders, or known exposure to COVID- 19. Prior admission on 10/26/2015 reviewed. All medication listed at time of admission has been reconciled. Advanced care planning conducted in the emergency department. Patient improving but still not at baseline. Per cardiology Further evaluation shows that just 3 months ago, he underwent a cardiac catheterization at [facility], no significant coronary artery disease was found, and ejection fraction was normal at 60%. EKG on this presentation was normal sinus rhythm, occasional PAC, left ventricle hypertrophy with repolarization abnormalities of LVH which are chronic on his ECGs dating back to 2016. Patient has no active cardiac issues, the troponin measurement is likely nonspecific finding, no further cardiac ischemic work-up is indicated. Following my discussion with family, it appears to be a COPD exacerbation, Will continue management as such and will obtain Pulmonary evaluation including COPD Exacerbation Acute on chronic Respiratory Failure with Hypoxia and Hypercapenia Type 2 NSTEMI Obesity Hypoventilation Syndrome Morbid Obesity Metabolic Alkalosis-Chronic Hyperkalemia Plan Continue supportive care Obtain covid testing Kayxalate and recheck Await Pulmonary consultation Oxygen therapy, PER PATIENT MAY NEED TO GO UP TO 4 LITERS AT NIGHT. Continue abx at this time Discussed with family Steroids-inhaled Monitor mental status History Interval history: Patient seen and examined, also discussed with the daughters, they report that the patient has hypoxia at night and gets confused and often hallucination. Hospitalist Physical - Physical exam Narrative exam: General appearance: Present: mild distress - EENT Eyes: Present: PERRL ENT: hearing intact, clear oral mucosa - Neck Neck: Present: supple, normal ROM - Respiratory Respiratory effort: labored, accessory muscle use Respiratory: bilateral: crackles, rales - Cardiovascular Heart Sounds: Present: S1 & S2. Absent: rub, click - Extremities Extremities: pulses symmetrical Extremity abnormal: edema Peripheral Pulses: within normal limits - Abdominal General gastrointestinal: Present: soft, non-tender, non-distended, normal bowel sounds Male genitourinary: Present: normal - Integumentary Integumentary: Present: clear, warm, dry - Musculoskeletal Musculoskeletal: gait normal, strength equal bilaterally - Psychiatric Psychiatric: appropriate mood/affect, intact judgment & insight - Neurologic Neurologic: CNII-XII intact, moves all extremities - Constitutional Vitals: Temp Pulse Resp BP Pulse Ox 99.1 F 69 21 186/59 95 08/27/20 09:10 08/28/20 06:01 08/28/20 06:01 08/28/20 11:01 08/28/20 11:01 General appearance: Present: mild distress HEART Score - HEART Score Troponin: Troponin T 0.099 ng/mL (0.00-0.029) H 08/28/20 12:19 Results - Labs CBC & Chem 7: 08/28/20 04:40 08/28/20 04:40 Labs: Laboratory Last Values WBC 6.7 K/mm3 (4.5-11.0) 08/28/20 04:40 RBC 4.08 M/mm3 (3.65-5.03) 08/28/20 04:40 Hgb 12.9 gm/dl (11.8-15.2) 08/28/20 04:40 Hct 41.6 % (35.5-45.6) 08/28/20 04:40 MCV 102 fl (84-94) H 08/28/20 04:40 MCH 32 pg (28-32) 08/28/20 04:40 MCHC 31 % (32-34) L 08/28/20 04:40 RDW 18.2 % (13.2-15.2) H 08/28/20 04:40 Plt Count 210 K/mm3 (140-440) 08/28/20 04:40 Lymph % (Auto) 10.1 % (13.4-35.0) L 08/28/20 04:40 [place] % (Auto) 11.4 % (0.0-7.3) H 08/28/20 04:40 Eos % (Auto) 0.1 % (0.0-4.3) 08/28/20 04:40 Baso % (Auto) 0.1 % (0.0-1.8) 08/28/20 04:40 Lymph # (Auto) 0.7 K/mm3 (1.2-5.4) L 08/28/20 04:40 [place] # (Auto) 0.8 K/mm3 (0.0-0.8) 08/28/20 04:40 Eos # (Auto) 0.0 K/mm3 (0.0-0.4) 08/28/20 04:40 Baso # (Auto) 0.0 K/mm3 (0.0-0.1) 08/28/20 04:40 Seg Neutrophils % 78.3 % (40.0-70.0) H 08/28/20 04:40 Seg Neutrophils # 5.3 K/mm3 (1.8-7.7) 08/28/20 04:40 PT 13.0 Sec. (12.2-14.9) 08/27/20 09:53 INR 0.96 (0.87-1.13) 08/27/20 09:53 ABG pH 7.314 pH Units (7.350-7.450) L 08/27/20 10:30 ABG pCO2 86.5 mm Hg 08/27/20 10:30 ABG pO2 64.1 mm Hg (80.0-90.0) L 08/27/20 10:30 ABG HCO3 42.9 mmol/L (20.0-26.0) H 08/27/20 10:30 ABG O2 Saturation 93.4 % (95.0-99.0) L 08/27/20 10:30 ABG O2 Content 16.3 (0.0-44) 08/27/20 10:30 ABG Base Excess 13.1 mmol/L (-2.0-3.0) H 08/27/20 10:30 ABG Hemoglobin 12.8 gm/dl (14.0-18.0) L 08/27/20 10:30 ABG Carboxyhemoglobin 2.4 % (0.0-5.0) 08/27/20 10:30 ABG Methemoglobin 0.7 % (0.0-1.5) 08/27/20 10:30 Oxyhemoglobin 90.5 % (95.0-99.0) L 08/27/20 10:30 FiO2 28 % 08/27/20 10:30 Sodium 143 mmol/L (137-145) 08/28/20 04:40 Potassium 5.6 mmol/L (3.6-5.0) H 08/28/20 04:40 Chloride 96.0 mmol/L (98-107) L 08/28/20 04:40 Carbon Dioxide 43 mmol/L (22-30) H* 08/28/20 04:40 Anion Gap 10 mmol/L 08/28/20 04:40 BUN 29 mg/dL (9-20) H 08/28/20 04:40 Creatinine 1.0 mg/dL (0.8-1.3) 08/28/20 04:40 Estimated GFR > 60 ml/min 08/28/20 04:40 BUN/Creatinine Ratio 29 % 08/28/20 04:40 Glucose 103 mg/dL (75-100) H 08/28/20 04:40 Calcium 9.3 mg/dL (8.4-10.2) 08/28/20 04:40 Total Bilirubin 0.60 mg/dL (0.1-1.2) 08/28/20 04:40 AST 15 units/L (5-40) 08/28/20 04:40 ALT 11 units/L (7-56) 08/28/20 04:40 Alkaline Phosphatase 81 units/L (35-129) 08/28/20 04:40 Total Creatine Kinase 70 units/L (55-170) 08/28/20 12:19 CK-MB (CK-2) 4.8 ng/mL (0.0-4.0) H 08/28/20 12:19 CK-MB (CK-2) Rel Index 6.8 (0-4) H 08/28/20 12:19 Troponin T 0.099 ng/mL (0.00-0.029) H 08/28/20 12:19 NT-Pro-B Natriuret Pep 1916 pg/mL (0-900) H 08/27/20 09:53 Total Protein 6.4 g/dL (6.3-8.2) 08/28/20 04:40 Albumin 3.5 g/dL (3.9-5) L 08/28/20 04:40 Albumin/Globulin Ratio 1.2 % 08/28/20 04:40 Triglycerides 129 mg/dL (2-149) 08/27/20 09:53 Cholesterol 210 mg/dL (50-199) H 08/27/20 09:53 LDL Cholesterol Direct 138 mg/dL (50-130) H 08/27/20 09:53 HDL Cholesterol 48 mg/dL (40-59) 08/27/20 09:53 Cholesterol/HDL Ratio 4.37 % 08/27/20 09:53 Active Medications - Current Medications Current Medications: Generic Name Dose Route Start Last Admin Trade Name Freq PRN Reason Stop Dose Admin Acetaminophen 650 mg 08/27/20 12:19 Tylenol PO Q4H PRN Pain MILD(1-3)/Fever >100.5/CAMPBELL Albuterol 2.5 mg 08/27/20 12:19 Proventil IH Q4HRT PRN Shortness Of Breath Arformoterol Tartrate 15 mcg 08/28/20 08:00 Brovana Nebu IH Q12HRT RADHA Budesonide 0.5 mg 08/28/20 08:00 Pulmicort IH Q12HRT RADHA Furosemide 20 mg 08/27/20 18:00 08/28/20 06:35 Lasix IV 20 mg BID@0600,1800 [facility] [place] Administration Miscellaneous Medication 1 drop 08/28/20 07:15 08/28/20 13:11 Polymyxin B Sulf/Trimethoprim [Polytrim Eye Drops] OP Not Given Q3H RADHA Montelukast Sodium 10 mg 08/28/20 22:00 Singulair PO QHS RADHA Ondansetron HCl 4 mg 08/27/20 12:19 Zofran IV Q8H PRN Nausea And Vomiting Sodium Chloride 10 ml 08/27/20 22:00 08/28/20 11:30 Sodium Chloride Flush Syringe 10 Ml IV 10 ml BID RADHA Administration Sodium Chloride 10 ml 08/27/20 12:19 Sodium Chloride Flush Syringe 10 Ml IV PRN PRN LINE FLUSH
[2020-08-28] MEDS ORDERED: SODIUM POLYSTYRENE 15 GM/60 ML ORAL LIQD PO ONE (14:56)
[2020-08-28] MEDS ORDERED: SODIUM POLYSTYRENE 15 GM/60 ML ORAL LIQD ONE (15:17)
--- NOTE | 2020-08-28 16:41 | Consultation ---
History of Present Illness Consult date: 08/28/20 Requesting physician: EDELMIRA HAMILTON Reason for consult: COPD History of present illness: PULMONARY/CCM CONSULT NOTE (Full dictation # [id number]) Please see dictated notes for full details - add quick steroid taper - empiric CAP coverage Past History Past Medical History: COPD, other (See HPI) Past Surgical History: No surgical history, Other (Reviewed) Social history: single. denies: smoking, alcohol abuse Family history: hypertension Medications and Allergies Allergies Allergy/AdvReac Type Severity Reaction Status Date / Time No Known Allergies Allergy Verified 12/06/19 21:46 Home Medications Medication Instructions Recorded Confirmed Last Taken Type Arformoterol Nebu [Brovana Nebu] 15 mcg IH Q12HRT 30 Days ml 11/03/15 12/06/19 1 Day Ago Rx ~12/05/19 Ipratropium/Albuterol Sulfate 1 ampul IH Q4HRT PRN #10 ampul.neb 11/03/15 12/06/19 1 Day Ago Rx [DUONEB *Not for PRN Use*] ~12/05/19 Doxycycline Hyclate 100 mg PO BID 10 Days #20 tablet. 12/06/19 Unknown Rx Polymyxin B Sulf/Trimethoprim 1 drop OP Q3H 7 Days #1 bottle 12/06/19 Unknown Rx [Polytrim Eye Drops] Prednisone [predniSONE 10 mg 10 mg PO .TAPER #1 tab.ds.pk 12/06/19 Unknown Rx (6-Day Pack, 21 Tabs)] Active Meds: Active Medications Acetaminophen (Tylenol) 650 mg PO Q4H PRN PRN Reason: Pain MILD(1-3)/Fever >100.5/CAMP[place]LL Albuterol (Proventil) 2.5 mg IH Q4HRT PRN PRN Reason: Shortness Of Breath Arformoterol Tartrate (Brovana Nebu) 15 mcg IH Q12HRT RADHA Budesonide (Pulmicort) 0.5 mg IH Q12HRT RADHA Furosemide (Lasix) 20 mg IV BID@0600,1800 [facility] Last Admin: 08/28/20 06:35 Dose: 20 mg Documented by: Miscellaneous Medication (Polymyxin B Sulf/Trimethoprim [Polytrim Eye Drops]) 1 drop OP Q3H RADHA Last Admin: 08/28/20 13:11 Dose: Not Given Documented by: Montelukast Sodium (Singulair) 10 mg PO QHS [facility] Ondansetron HCl (Zofran) 4 mg IV Q8H PRN PRN Reason: Nausea And Vomiting Sodium Chloride (Sodium Chloride Flush Syringe 10 Ml) 10 ml IV BID [facility] Last Admin: 08/28/20 11:30 Dose: 10 ml Documented by: Sodium Chloride (Sodium Chloride Flush Syringe 10 Ml) 10 ml IV PRN PRN PRN Reason: LINE FLUSH Physical Examination Vital signs: Vital Signs Pulse Ox 96 08/27/20 09:01 Results - Laboratory Findings CBC and BMP: 08/28/20 04:40 08/29/20 09:18 ABG ABG pH 7.314 pH Units (7.350-7.450) L 08/27/20 10:30 ABG pCO2 86.5 mm Hg 08/27/20 10:30 ABG pO2 64.1 mm Hg (80.0-90.0) L 08/27/20 10:30 ABG O2 Saturation 93.4 % (95.0-99.0) L 08/27/20 10:30 PT/INR, D-dimer PT 13.0 Sec. (12.2-14.9) 08/27/20 09:53 INR 0.96 (0.87-1.13) 08/27/20 09:53 Abnormal lab findings: Abnormal Labs 08/27/20 08/27/20 08/27/20 09:53 09:53 10:30 MCV 103 H MCHC 31 L RDW 18.0 H Lymph % (Auto) 8.2 L [place] % (Auto) 9.3 H Lymph # (Auto) 0.5 L Seg Neutrophils % 81.3 H ABG pH 7.314 L ABG pO2 64.1 L ABG HCO3 42.9 H ABG O2 Saturation 93.4 L ABG Base Excess 13.1 H ABG Hemoglobin 12.8 L Oxyhemoglobin 90.5 L Potassium Chloride 94.9 L Carbon Dioxide 48 H* D BUN 32 H Glucose 137 H CK-MB (CK-2) CK-MB (CK-2) Rel Index Troponin T 0.090 H NT-Pro-B Natriuret Pep 1916 H Albumin Cholesterol 210 H LDL Cholesterol Direct 138 H 08/28/20 08/28/20 08/28/20 04:40 04:40 12:19 MCV 102 H MCHC 31 L RDW 18.2 H Lymph % (Auto) 10.1 L [place] % (Auto) 11.4 H Lymph # (Auto) 0.7 L Seg Neutrophils % 78.3 H ABG pH ABG pO2 ABG HCO3 ABG O2 Saturation ABG Base Excess ABG Hemoglobin Oxyhemoglobin Potassium 5.6 H Chloride 96.0 L Carbon Dioxide 43 H* BUN 29 H Glucose 103 H CK-MB (CK-2) 4.8 H CK-MB (CK-2) Rel Index 6.8 H Troponin T 0.099 H NT-Pro-B Natriuret Pep Albumin 3.5 L Cholesterol LDL Cholesterol Direct
[2020-08-28 17:56] LABS: Creatine Kinase MB 5.2 ng/mL (0.0-4.0)
[2020-08-28] MEDS: ARFORMOTEROL 15 MCG/2 ML NEBU IH SCH ×2 (18:32→21:25)
[2020-08-28] MEDS: BUDESONIDE 0.5 MG/2 ML NEBU IH SCH ×2 (18:33→21:26)
[2020-08-28] MEDS ORDERED: AZITHROMYCIN 250 MG TAB ONE (20:09)
[2020-08-28] MEDS: AZITHROMYCIN 250 MG TAB PO SCH (20:15)
[2020-08-28] MEDS ORDERED: ARFORMOTEROL 15 MCG/2 ML NEBU IH ONE (21:18)
[2020-08-28] MEDS ORDERED: BUDESONIDE 0.5 MG/2 ML NEBU IH ONE (21:18)
[2020-08-28] MEDS ORDERED: methylPREDNISolone Sod Succinate 125 MG/2 ML INJ ONE (22:13)
[2020-08-28] MEDS ORDERED: methylPREDNISolone Sod Succinate 40 MG/1 ML INJ ONE (22:16)
[2020-08-28] MEDS: methylPREDNISolone Sod Succinate 40 MG/1 ML INJ IV SCH (22:19)
[2020-08-29] MEDS: MONTELUKAST 10 MG TAB PO SCH (00:29)
[2020-08-29] MEDS: POLYMYXIN B SULF OP SCH ×5 (02:10→22:30)
[2020-08-29] MEDS: TRIMETHOPRIM OP SCH ×5 (02:10→22:30)
[2020-08-29] MEDS ORDERED: BUDESONIDE 0.5 MG/2 ML NEBU IH ONE ×2 (08:04→19:21)
[2020-08-29] MEDS ORDERED: ARFORMOTEROL 15 MCG/2 ML NEBU IH ONE (08:04)
[2020-08-29] MEDS: BUDESONIDE 0.5 MG/2 ML NEBU IH SCH ×2 (08:13→19:39)
[2020-08-29] MEDS: ARFORMOTEROL 15 MCG/2 ML NEBU IH SCH (08:13)
[2020-08-29 09:56] LABS: BUN/Creatinine Ratio 30; Blood Urea Nitrogen 24 mg/dL (9-20); Calcium 9.1 mg/dL (8.4-10.2); Hemolysis Index 9
[2020-08-29] MEDS: IPRATROPIUM/ALBUTEROL SULFATE 3 ML AMPUL.NEB IH SCH ×3 (10:42→19:39)
[2020-08-29] MEDS ORDERED: FUROSEMIDE 20 MG/2 ML INJ ONE ×2 (10:54→19:36)
[2020-08-29] MEDS ORDERED: AZITHROMYCIN 250 MG TAB ONE (10:55)
[2020-08-29] MEDS ORDERED: methylPREDNISolone Sod Succinate 40 MG/1 ML INJ ONE (10:55)
[2020-08-29] MEDS ORDERED: amLODIPine 10 MG TAB ONE (10:55)
[2020-08-29] MEDS ORDERED: LISINOPRIL 20 MG TAB ONE (10:55)
[2020-08-29] MEDS: FUROSEMIDE 20 MG/2 ML INJ IV SCH ×2 (11:10→19:43)
[2020-08-29] MEDS: methylPREDNISolone Sod Succinate 40 MG/1 ML INJ IV SCH (11:12)
[2020-08-29] MEDS: AZITHROMYCIN 250 MG TAB PO SCH (11:15)
[2020-08-29] MEDS: LISINOPRIL 20 MG TAB PO SCH (11:15)
[2020-08-29] MEDS: amLODIPine 10 MG TAB PO SCH (11:15)
--- NOTE | 2020-08-29 14:25 | Progress Note ---
Assessment and Plan Assessment and plan: 64 YO Male with COPD, Chronic Respiratory Failure on Home Oxygen, Obesity Hypoventilation Syndrome presents to ED for evaluation. Patient states that he has experienced shortness of breath, dizziness, weakness which was followed by a fall. Patient states that he has experienced shortness of breath, weakness, decreased exercise tolerance, orthopnea, paroxysmal nocturnal dyspnea over the past 3 to 4 days with persistent symptoms over the same timeframe. Patient reports lack of relief with increased nebulizer and inhaler use. EMS notified and upon arrival the patient was found to be in distress and subsequently transported to [facility] for further care and evaluation of the aforementioned symptoms. Patient seen and evaluated in the emergency department. All lab and imaging studies reviewed. The patient was found to have a pulse oximetry of 77% on room air which is consistent with acute hypoxemic respiratory failure. The patient was placed on increased supplemental oxygen with mild relief in symptoms. Patient also found to have symptoms consistent with CHF decompensation as well as laboratory values consistent with type II NSTEMI. Cardiology team consulted. Patient admitted to telemetry and initiated on CHF protocol due to increased risk of cardiac decompensation. Patient denies fever, chills, palpitations, productive cough, skin rash, recent ill contacts, prolonged travel/immobility, unilateral leg pain, calf pain, individual/family history of DVT/PE/bleeding/blood clotting disorders, or known exposure to COVID- 19. Prior admission on 10/26/2015 reviewed. All medication listed at time of admission has been reconciled. Advanced care planning conducted in the emergency department. Patient improving but still not at baseline. Per cardiology Further evaluation shows that just 3 months ago, he underwent a cardiac catheterization at [facility], no significant coronary artery disease was found, and ejection fraction was normal at 60%. EKG on this presentation was normal sinus rhythm, occasional PAC, left ventricle hypertrophy with repolarization abnormalities of LVH which are chronic on his ECGs dating back to 2016. Patient has no active cardiac issues, the troponin measurement is likely nonspecific finding, no further cardiac ischemic work-up is indicated. Following my discussion with family, it appears to be a COPD exacerbation, Will continue management as such and will obtain Pulmonary evaluation including 08/29: Continue supportive care, continue IV steroids as indicated by wine pasteurizer. Patient may benefit from BiPAP at nighttime. We will continue in-house treatment but still hypoxic with high level of oxygen. COPD Exacerbation Acute on chronic Respiratory Failure with Hypoxia and Hypercapenia Type 2 NSTEMI Obesity Hypoventilation Syndrome Morbid Obesity Metabolic Alkalosis-Chronic Hyperkalemia Plan Continue supportive care Obtain covid testing Kayxalate and recheck Await Pulmonary consultation Oxygen therapy, PER PATIENT MAY NEED TO GO UP TO 4 LITERS AT NIGHT. Continue abx at this time Discussed with family Steroids-inhaled Monitor mental status History Interval history: Patient seen and examined, still with shortness of breath on 6 liters oxygen Hospitalist Physical - Physical exam Narrative exam: General appearance: Present: mild distress, encouraged to elevate hob whole lying down - EENT Eyes: Present: PERRL ENT: hearing intact, clear oral mucosa - Neck Neck: Present: supple, normal ROM - Respiratory Respiratory effort: labored, accessory muscle use persisit, Respiratory: bilateral: crackles, rales - Cardiovascular Heart Sounds: Present: S1 & S2. Absent: rub, click - Extremities Extremities: pulses symmetrical Extremity abnormal: edema Peripheral Pulses: within normal limits - Abdominal General gastrointestinal: Present: soft, non-tender, non-distended, normal bowel sounds Male genitourinary: Present: normal - Integumentary Integumentary: Present: clear, warm, dry - Musculoskeletal Musculoskeletal: gait normal, strength equal bilaterally - Psychiatric Psychiatric: appropriate mood/affect, intact judgment & insight - Neurologic Neurologic: CNII-XII intact, moves all extremities - Constitutional Vitals: Temp Pulse Resp BP Pulse Ox 97.7 F 93 H 20 113/80 90 08/29/20 08:00 08/29/20 14:01 08/29/20 14:01 08/29/20 14:01 08/29/20 14:20 General appearance: Present: mild distress HEART Score - HEART Score Troponin: Troponin T 0.108 ng/mL (0.00-0.029) H* 08/28/20 17:23 Results - Labs CBC & Chem 7: 08/28/20 04:40 08/29/20 09:18 Labs: Laboratory Last Values WBC 6.7 K/mm3 (4.5-11.0) 08/28/20 04:40 RBC 4.08 M/mm3 (3.65-5.03) 08/28/20 04:40 Hgb 12.9 gm/dl (11.8-15.2) 08/28/20 04:40 Hct 41.6 % (35.5-45.6) 08/28/20 04:40 MCV 102 fl (84-94) H 08/28/20 04:40 MCH 32 pg (28-32) 08/28/20 04:40 MCHC 31 % (32-34) L 08/28/20 04:40 RDW 18.2 % (13.2-15.2) H 08/28/20 04:40 Plt Count 210 K/mm3 (140-440) 08/28/20 04:40 Lymph % (Auto) 10.1 % (13.4-35.0) L 08/28/20 04:40 [place] % (Auto) 11.4 % (0.0-7.3) H 08/28/20 04:40 Eos % (Auto) 0.1 % (0.0-4.3) 08/28/20 04:40 Baso % (Auto) 0.1 % (0.0-1.8) 08/28/20 04:40 Lymph # (Auto) 0.7 K/mm3 (1.2-5.4) L 08/28/20 04:40 [place] # (Auto) 0.8 K/mm3 (0.0-0.8) 08/28/20 04:40 Eos # (Auto) 0.0 K/mm3 (0.0-0.4) 08/28/20 04:40 Baso # (Auto) 0.0 K/mm3 (0.0-0.1) 08/28/20 04:40 Seg Neutrophils % 78.3 % (40.0-70.0) H 08/28/20 04:40 Seg Neutrophils # 5.3 K/mm3 (1.8-7.7) 08/28/20 04:40 PT 13.0 Sec. (12.2-14.9) 08/27/20 09:53 INR 0.96 (0.87-1.13) 08/27/20 09:53 ABG pH 7.314 pH Units (7.350-7.450) L 08/27/20 10:30 ABG pCO2 86.5 mm Hg 08/27/20 10:30 ABG pO2 64.1 mm Hg (80.0-90.0) L 08/27/20 10:30 ABG HCO3 42.9 mmol/L (20.0-26.0) H 08/27/20 10:30 ABG O2 Saturation 93.4 % (95.0-99.0) L 08/27/20 10:30 ABG O2 Content 16.3 (0.0-44) 08/27/20 10:30 ABG Base Excess 13.1 mmol/L (-2.0-3.0) H 08/27/20 10:30 ABG Hemoglobin 12.8 gm/dl (14.0-18.0) L 08/27/20 10:30 ABG Carboxyhemoglobin 2.4 % (0.0-5.0) 08/27/20 10:30 ABG Methemoglobin 0.7 % (0.0-1.5) 08/27/20 10:30 Oxyhemoglobin 90.5 % (95.0-99.0) L 08/27/20 10:30 FiO2 28 % 08/27/20 10:30 Sodium 139 mmol/L (137-145) 08/29/20 09:18 Potassium 5.2 mmol/L (3.6-5.0) H 08/29/20 09:18 Chloride 91.5 mmol/L (98-107) L 08/29/20 09:18 Carbon Dioxide 46 mmol/L (22-30) H* 08/29/20 09:18 Anion Gap 7 mmol/L 08/29/20 09:18 BUN 24 mg/dL (9-20) H 08/29/20 09:18 Creatinine 0.8 mg/dL (0.8-1.3) 08/29/20 09:18 Estimated GFR > 60 ml/min 08/29/20 09:18 BUN/Creatinine Ratio 30 % 08/29/20 09:18 Glucose 119 mg/dL (75-100) H 08/29/20 09:18 POC Glucose 143 mg/dL (70-105) H 08/29/20 11:24 Calcium 9.1 mg/dL (8.4-10.2) 08/29/20 09:18 Total Bilirubin 0.60 mg/dL (0.1-1.2) 08/28/20 04:40 AST 15 units/L (5-40) 08/28/20 04:40 ALT 11 units/L (7-56) 08/28/20 04:40 Alkaline Phosphatase 81 units/L (35-129) 08/28/20 04:40 Total Creatine Kinase 74 units/L (55-170) 08/28/20 17:23 CK-MB (CK-2) 5.2 ng/mL (0.0-4.0) H 08/28/20 17:23 CK-MB (CK-2) Rel Index 7.0 (0-4) H 08/28/20 17:23 Troponin T 0.108 ng/mL (0.00-0.029) H* 08/28/20 17:23 NT-Pro-B Natriuret Pep 1916 pg/mL (0-900) H 08/27/20 09:53 Total Protein 6.4 g/dL (6.3-8.2) 08/28/20 04:40 Albumin 3.5 g/dL (3.9-5) L 08/28/20 04:40 Albumin/Globulin Ratio 1.2 % 08/28/20 04:40 Triglycerides 129 mg/dL (2-149) 08/27/20 09:53 Cholesterol 210 mg/dL (50-199) H 08/27/20 09:53 LDL Cholesterol Direct 138 mg/dL (50-130) H 08/27/20 09:53 HDL Cholesterol 48 mg/dL (40-59) 08/27/20 09:53 Cholesterol/HDL Ratio 4.37 % 08/27/20 09:53 Coronavirus (PCR) Negative (Negative) 08/28/20 11:41 - Diagnostic Impressions Diagnostic Impressions: Echocardiogram 08/27/20 19:39 Transthoracic Echocardiogram Indication: CHF BP: 186/59 Conclusions *Mild concentric left ventricular hypertrophy is observed. *Global left ventricular wall motion and contractility are within normal limits. *The estimated ejection fraction is 60-65%. *Abnormal left ventricular diastolic filling is observed, consistent with impaired relaxation. *The left atrium is mildly dilated. *There is no pericardial effusion. Findings Procedure Info: The study quality is fair. Left Ventricle: The left ventricular chamber size is normal. Mild concentric left ventricular hypertrophy is observed. Global left ventricular wall motion and contractility are within normal limits. Global left ventricular systolic function is normal. The estimated ejection fraction is 60-65%. Abnormal left ventricular diastolic filling is observed, consistent with impaired relaxation. Left Atrium: The left atrium is mildly dilated. Right Ventricle: The right ventricular chamber size and systolic function are within normal limits. Right Atrium: The right atrium is mildly dilated. Aortic Valve: The aortic valve is trileaflet. Mild aortic cusp sclerosis is present. There is no evidence of aortic regurgitation. There is no evidence of aortic stenosis. Mitral Valve: The mitral valve leaflets appear normal. There is trace of mitral regurgitation. There is no evidence of mitral stenosis. Tricuspid Valve: The tricuspid valve leaflets are normal. There is mild tricuspid regurgitation. The right ventricular systolic pressure is calculated at 35 mmHg. There is no tricuspid stenosis. Pulmonic Valve: The pulmonic valve appears normal. There is trace pulmonic regurgitation. There is no pulmonic stenosis. Pericardium: There is no pericardial effusion. Aorta: The aorta appears normal. Pulmonary Artery: The main pulmonary artery is not well visualized. Venous: The inferior vena cava appears normal in size. There is a greater than 50% respiratory change in the inferior vena cava dimension. Measurements Chambers 2D Name Value Normal Range IVSd (2D) 1.36 cm (0.6 - 1.1) LVPWd (2D) 1.25 cm (0.6 - 1.1) LVIDd (2D) 5.39 cm (3.7 - 5.6) LVIDs (2D) 3.52 cm (2 - 3.8) LV FS (2D) 34.6 % - EF Teichholz (2D) 63.22 % - Ao root diameter (2D) 2.91 cm (2 - 3.7) Volumes/Mass Name Value Normal Range LA ESV SP 4CH (A/L) 95.05 ml - LA ESV SP 2CH (A/L) 91.9 ml - LA ESV BP (A/L) 95.07 ml - LA ESV BP (A/L) index 42.44 ml/m2 - LA ESV SP 4CH (MOD) 92.64 ml - LA ESV SP 2CH (MOD) 89.95 ml - LA ESV BP (MOD) 92.57 ml - LA ESV BP (MOD) index 41.33 ml/m2 - LV EDV SP 4CH (MOD) 109.96 ml - LV ESV SP 4CH (MOD) 41.09 ml - EF SP 4CH (MOD) 62.63 % - LV EDV SP 2CH (MOD) 136.13 ml - LV ESV SP 2CH (MOD) 35.11 ml - EF SP 2CH (MOD) 74.21 % - LV EDV BP 125.58 ml - LV ESV BP 39.58 ml - BP EF (MOD) 68.48 % - Diastolic/Systolic Function Name Value Normal Range MV E-wave Vmax 1 m/sec - MV deceleration time 207.6 msec - MV A-wave Vmax 0.93 m/sec - MV E:A ratio 1.08 ratio - Aortic Valve Name Value Normal Range AV Vmax 2.29 m/sec - AV VTI 40.33 cm - AV peak gradient 20.91 mmHg - AV mean gradient 10.71 mmHg - LVOT diameter 2.19 cm - LVOT Vmax 1.87 m/sec - LVOT VTI 34.2 cm - LVOT peak gradient 14.05 mmHg - LVOT mean gradient 7.22 mmHg - SV LVOT 129.19 ml - MATEO (continuity Vmax) 3.1 cm2 - MATEO (continuity VTI) 3.2 cm2 - Ascending Ao 2.86 cm - Tricuspid Valve Name Value Normal Range TV E-wave Vmax 0.56 m/sec - TR Vmax 2.85 m/sec - TR peak gradient 32.6 mmHg - RAP 3 mmHg - RVSP 35 mmHg - Pulmonic Valve/Qp:Qs Name Value Normal Range PV Vmax 1.49 m/sec - PV peak gradient 8.93 mmHg - RVOT Vmax 0.89 m/sec - RVOT VTI 20.22 cm - RVOT peak gradient 3.19 mmHg - PV acceleration time 110.37 msec - Active Medications - Current Medications Current Medications: Generic Name Dose Route Start Last Admin Trade Name Freq PRN Reason Stop Dose Admin Acetaminophen 650 mg 08/27/20 12:19 Tylenol PO Q4H PRN Pain MILD(1-3)/Fever >100.5/[place]AMP[place] Albuterol 2.5 mg 08/27/20 12:19 Proventil IH Q4HRT PRN Shortness Of Breath Albuterol/Ipratropium 1 ampul 08/29/20 09:00 08/29/20 10:42 Duoneb *Not For Prn Use* IH Not Given Q6HRT RADHA Amlodipine Besylate 10 mg 08/29/20 10:00 08/29/20 11:15 Amlodipine PO 10 mg QDAY RADHA Administration Arformoterol Tartrate 15 mcg 08/28/20 08:00 08/29/20 08:13 Osbaldo Reynolds IH 15 mcg Q12HRT RADHA Administration Azithromycin 500 mg 08/28/20 20:00 08/29/20 11:15 Zithromax PO 09/01/20 10:01 500 mg QDAY RADHA Administration Budesonide 0.5 mg 08/28/20 08:00 08/29/20 08:13 Pulmicort IH 0.5 mg Q12HRT RADHA Administration Furosemide 20 mg 08/27/20 18:00 08/29/20 11:10 Lasix IV 20 mg BID@0600,1800 [facility] Administration Lisinopril 20 mg 08/29/20 10:00 08/29/20 11:15 Zestril PO 20 mg QDAY [facility] Administration Methylprednisolone Sodium Succinate 40 mg 08/28/20 22:00 08/29/20 11:12 Solu-Medrol IV 40 mg Q12HR RADHA Administration Miscellaneous Medication 1 drop 08/28/20 07:15 08/29/20 10:51 Polymyxin B Sulf/Trimethoprim [Polytrim Eye Drops] OP Not Given Q3H [facility] Montelukast Sodium 10 mg 08/28/20 22:00 08/29/20 00:29 Singulair PO 10 mg QHS RADHA Administration Ondansetron HCl 4 mg 08/27/20 12:19 Zofran IV Q8H PRN Nausea And Vomiting Sodium Chloride 10 ml 08/27/20 22:00 08/29/20 11:13 Sodium Chloride Flush Syringe 10 Ml IV 10 ml BID RADHA Administration Sodium Chloride 10 ml 08/27/20 12:19 Sodium Chloride Flush Syringe 10 Ml IV PRN PRN LINE FLUSH
--- NOTE | 2020-08-29 16:10 | Progress Note ---
Assessment and Plan Acute on chronic hypoxemic and hypercapnic respiratory failure. Acute chronic obstructive pulmonary disease exacerbation. Fall with injury to the right anterior skull. Obesity. History of obesity hypoventilation syndrome. Likely obstructive sleep apnea. Acute kidney injury, mild. Possible cardiomyopathy. Non-ST elevation myocardial infarction. - deployed BIPAP now and will transition to QHS only use as tolerated(03/06 rate of 20) - continue restrictive oxygen therapies to keep O2 sats 88-90% acutely - continue Bronchodilators (SUJEY & LABA) with pulm hygiene per RT - continue systemic steroids with slow taper - continue inhaled corticosteroids - agree with diuresis - ACS w-up per cardiology - avoid nephrotoxins, renally dose all medications - mobility protocols to prevent pressure ulcers - PT/OT as tolerated - prn analgesia per pain score - accuchecks with glycemic control per SSI for target blood glucose < 180 mg/dL - continued tobacco abstinence strongly counseled at the bedside - home oxygen evaluation at discharge - GI & VTE prophylaxis - Flu & pneumovax per protocol - Pulmonary out patient follow up for PFTs and optimization of respiratory status - continue other care per attending / other consultants ... re-evaluate in am & prn Subjective Date of service: 08/29/20 Principal diagnosis: AE-COPD; AC on Ch Hypercapnic & hypoxemic resp failure; SALLY/OHS Interval history: Patient is seen today for: AE-COPD; AC on Ch Hypercapnic & hypoxemic resp failure; SALLY/OHS Seen and examined at bedside; 24hour events reviewed; nursing and respiratory care staff consulted; no adverse overnight events reported to me; resting peacefully in bed; placed on BIPAP and remains on it due to worsening hypercapnia; denies acute chest pains or palpitations; No N/V/F/C Objective Vital Signs - 12hr 08/29/20 08/29/20 08/29/20 04:46 05:00 05:16 Temperature Pulse Rate Pulse Rate [ Anterior Bilateral Throughout] Respiratory Rate Respiratory Rate [Anterior Bilateral Throughout] Blood Pressure O2 Sat by Pulse 97 98 95 Oximetry 08/29/20 08/29/20 08/29/20 05:30 05:46 06:00 Temperature Pulse Rate Pulse Rate [ Anterior Bilateral Throughout] Respiratory Rate Respiratory Rate [Anterior Bilateral Throughout] Blood Pressure O2 Sat by Pulse 98 88 97 Oximetry 08/29/20 08/29/20 08/29/20 06:16 06:30 06:46 Temperature Pulse Rate Pulse Rate [ Anterior Bilateral Throughout] Respiratory Rate Respiratory Rate [Anterior Bilateral Throughout] Blood Pressure O2 Sat by Pulse 91 95 91 Oximetry 08/29/20 08/29/20 08/29/20 07:00 07:31 07:45 Temperature Pulse Rate 74 Pulse Rate [ Anterior Bilateral Throughout] Respiratory 16 Rate Respiratory Rate [Anterior Bilateral Throughout] Blood Pressure 183/91 O2 Sat by Pulse 91 96 96 Oximetry 08/29/20 08/29/20 08/29/20 08:00 08:01 10:01 Temperature 97.7 F Pulse Rate 71 75 Pulse Rate [ 78 Anterior Bilateral Throughout] Respiratory 17 14 Rate Respiratory 18 Rate [Anterior Bilateral Throughout] Blood Pressure 183/91 146/75 O2 Sat by Pulse 95 81 L Oximetry 08/29/20 08/29/20 08/29/20 11:01 11:15 11:31 Temperature Pulse Rate 84 70 90 Pulse Rate [ Anterior Bilateral Throughout] Respiratory 17 13 Rate Respiratory Rate [Anterior Bilateral Throughout] Blood Pressure 146/75 158/82 158/82 O2 Sat by Pulse 63 L Oximetry 08/29/20 08/29/20 08/29/20 12:00 12:31 13:01 Temperature Pulse Rate 85 96 H 95 H Pulse Rate [ Anterior Bilateral Throughout] Respiratory 14 16 23 Rate Respiratory Rate [Anterior Bilateral Throughout] Blood Pressure 113/80 113/80 113/80 O2 Sat by Pulse 92 52 L 72 L Oximetry 08/29/20 08/29/20 08/29/20 13:31 14:01 14:20 Temperature Pulse Rate 104 H 93 H Pulse Rate [ Anterior Bilateral Throughout] Respiratory 18 20 Rate Respiratory Rate [Anterior Bilateral Throughout] Blood Pressure 113/80 113/80 O2 Sat by Pulse 66 L 64 L 90 Oximetry 08/29/20 14:40 Temperature Pulse Rate Pulse Rate [ Anterior Bilateral Throughout] Respiratory Rate Respiratory Rate [Anterior Bilateral Throughout] Blood Pressure O2 Sat by Pulse 96 Oximetry Constitutional: no acute distress, other (elderly obese male with mildly increased respiratory effort at rest) Eyes: non-icteric ENT: oropharynx moist Neck: supple, no lymphadenopathy, no JVD Effort: mildly labored Ascultation: Bilateral: clear, diminished breath sounds, other (prolonged expiratory phase) Percussion: Bilateral: not dull Cardiovascular: regular rate and rhythm Gastrointestinal: normoactive bowel sounds, soft, non-tender, non-distended (protuberabt) Integumentary: normal Extremities: no cyanosis, no edema, pulses normal, no ischemia or petechiae Neurologic: normal mental status, non-focal exam, pupils equal and round, CN II- XII normal Psychiatric: mood appropriate, affect normal CBC and BMP: 08/28/20 04:40 08/29/20 09:18 ABG, PT/INR, D-dimer: ABG ABG pH 7.314 pH Units (7.350-7.450) L 08/27/20 10:30 ABG pCO2 86.5 mm Hg 08/27/20 10:30 ABG pO2 64.1 mm Hg (80.0-90.0) L 08/27/20 10:30 ABG O2 Saturation 93.4 % (95.0-99.0) L 08/27/20 10:30 PT/INR, D-dimer PT 13.0 Sec. (12.2-14.9) 08/27/20 09:53 INR 0.96 (0.87-1.13) 08/27/20 09:53 Abnormal lab findings: Abnormal Labs 08/27/20 08/27/20 08/27/20 09:53 09:53 10:30 MCV 103 H MCHC 31 L RDW 18.0 H Lymph % (Auto) 8.2 L [place] % (Auto) 9.3 H Lymph # (Auto) 0.5 L Seg Neutrophils % 81.3 H ABG pH 7.314 L ABG pO2 64.1 L ABG HCO3 42.9 H ABG O2 Saturation 93.4 L ABG Base Excess 13.1 H ABG Hemoglobin 12.8 L Oxyhemoglobin 90.5 L Potassium Chloride 94.9 L Carbon Dioxide 48 H* D BUN 32 H Glucose 137 H POC Glucose CK-MB (CK-2) CK-MB (CK-2) Rel Index Troponin T 0.090 H NT-Pro-B Natriuret Pep 1916 H Albumin Cholesterol 210 H LDL Cholesterol Direct 138 H 08/28/20 08/28/20 08/28/20 04:40 04:40 12:19 MCV 102 H MCHC 31 L RDW 18.2 H Lymph % (Auto) 10.1 L [place] % (Auto) 11.4 H Lymph # (Auto) 0.7 L Seg Neutrophils % 78.3 H ABG pH ABG pO2 ABG HCO3 ABG O2 Saturation ABG Base Excess ABG Hemoglobin Oxyhemoglobin Potassium 5.6 H Chloride 96.0 L Carbon Dioxide 43 H* BUN 29 H Glucose 103 H POC Glucose CK-MB (CK-2) 4.8 H CK-MB (CK-2) Rel Index 6.8 H Troponin T 0.099 H NT-Pro-B Natriuret Pep Albumin 3.5 L Cholesterol LDL Cholesterol Direct 08/28/20 08/29/20 08/29/20 17:23 09:18 11:24 MCV MCHC RDW Lymph % (Auto) [place] % (Auto) Lymph # (Auto) Seg Neutrophils % ABG pH ABG pO2 ABG HCO3 ABG O2 Saturation ABG Base Excess ABG Hemoglobin Oxyhemoglobin Potassium 5.2 H Chloride 91.5 L Carbon Dioxide 46 H* BUN 24 H Glucose 119 H POC Glucose 143 H CK-MB (CK-2) 5.2 H CK-MB (CK-2) Rel Index 7.0 H Troponin T 0.108 H* NT-Pro-B Natriuret Pep Albumin Cholesterol LDL Cholesterol Direct Chest x-ray: other (Chronic hyperinflationa and bilateral mid-lung zone scarring vas small volume atelectasis) Allied health notes reviewed: nursing
[2020-08-29] MEDS ORDERED: IPRATROPIUM/ALBUTEROL SULFATE 3 ML AMPUL.NEB IH ONE (19:21)
[2020-08-29 20:48] LABS: ABG Base Excess 15.5 mmol/L (-2.0-3.0); ABG HCO3 43.1 mmol/L (20.0-26.0); ABG Methemoglobin 0.6 % (0.0-1.5); ABG PCO2 65.7 mm Hg; ABG PH 7.435 pH Units (7.350-7.450); ABG PO2 74.7 mm Hg (80.0-90.0)
[2020-08-30] MEDS: POLYMYXIN B SULF OP SCH ×2 (02:52→04:38)
[2020-08-30] MEDS: TRIMETHOPRIM OP SCH ×2 (02:52→04:38)
[2020-08-30] MEDS ORDERED: ENOXAPARIN 40 MG/0.4 ML INJ SUB-Q ONE ×2 (02:54→23:59)
[2020-08-30] MEDS ORDERED: methylPREDNISolone Sod Succinate 40 MG/1 ML INJ ONE ×3 (02:54→23:59)
[2020-08-30] MEDS: methylPREDNISolone Sod Succinate 40 MG/1 ML INJ IV SCH ×2 (03:40→10:17)
[2020-08-30] MEDS: MONTELUKAST 10 MG TAB PO SCH (03:41)
[2020-08-30] MEDS: ENOXAPARIN 40 MG/0.4 ML INJ SUB-Q SCH (03:43)
--- NOTE | 2020-08-30 04:13 | Consultation ---
PULMONARY CRITICAL CARE CONSULTATION NOTE CONSULTING PHYSICIAN: Tam Ambriz MD REASON FOR CONSULTATION: Acute COPD exacerbation. CHIEF COMPLAINT AND HISTORY OF PRESENT ILLNESS: As follows: The patient is now a 64-year-old male with past medical history significant in this context for a diagnosis of chronic obstructive lung disease, home oxygen dependent, for which he says is usually on about 2-3 liters at home as well as obesity hypoventilation syndrome, possibly obstructive sleep apnea. He came into the Emergency Room complaining of shortness of breath, dizziness, weakness. He had fallen down. He denied actual passing out, he just says that his specks kind of give way on him. He also complained of episodes of paroxysmal nocturnal dyspnea and orthopnea in the preceding 3-4 days. He had been using his nebulizer treatments at home and other medications and was brought into the Emergency Room. When EMS services got there, he also was found to have O2 sats of 77% on room air. He was brought in. Amongst other things, there was suggestion of a type 2 non-ST elevated IN. He was started on appropriate medications and supplemental oxygen and Pulmonary Critical Care was asked to assist with management. When I stopped by to see him, he was lying on the side of bed, feeling better. He remained at that time on supplemental oxygen at about 5 liters nasal cannula with O2 sats in the low 90s. He denied chest pains. He denied cough or expectoration. He denied new onset leg pain or swelling either unilaterally or bilaterally or any suggestion of deep venous thrombosis. He also denies any contact with a known COVID-19 patient. This really is as much of the history of presentation. I should mention he has a 20+ pack year tobacco smoking history, but states he quit smoking about 4-5 years ago. PAST MEDICAL HISTORY: Again, chronic obstructive lung disease, obesity hypoventilation syndrome, likely obstructive sleep apnea. He is obese. PAST SURGICAL HISTORY: Unknown. MEDICATIONS: He was on at the time I stopped by to see him were reviewed. Pertinent medications include the following: Tylenol 650 mg p.o. q. 4 hours p.r.n. mild pain or fevers, albuterol nebulizer treatments 2.5 mg nebulized q. 4 hours p.r.n., Brovana 15 mcg nebulized q. 12 hours, Pulmicort 0.5 mg inhaled q.12 hours, Lasix 20 mg IV b.i.d., Singulair 10 mg p.o. at bedtime, Zofran 4 mg IV q. 8 hours p.r.n. nausea and vomiting. ALLERGIES: No known drug allergies. DIET: Obese gentleman. Denies acute weight loss or gain in the preceding few weeks to months. FAMILY AND SOCIAL HISTORY: Apparently lives in the community, has a 20+ pack year tobacco smoking history. No current alcohol, tobacco, or illicit drug use or abuse. FAMILY HISTORY: Otherwise, noncontributory. REVIEW OF SYSTEMS: No overt loss of consciousness. He did, however trip and fall down. No new onset focal weakness. Denies gross hematochezia or melena. Denies gross hematuria or dysuria. No hematemesis. No hemoptysis. Denies heat or cold intolerance. Denies polydipsia or polyuria. Complete 13-system review of systems obtained. Pertinent positives and/or negatives as in body of history above, otherwise they are noncontributory. PHYSICAL EXAMINATION: VITAL SIGNS: On examination at presentation in the Emergency Room, he had a low-grade fever, temperature 99.1 degrees Fahrenheit with a pulse of 69, respiratory rate of 20, blood pressure 140/69, O2 sats were 96%, at that time on 5 liters nasal cannula. GENERAL: Elderly looking male. Normocephalic, atraumatic with mildly increased respiratory effort at rest. HEAD, EYES, EARS, NOSE AND THROAT: Anicteric. No conjunctival erythema. Oropharynx was moist. Mallampati #3 oropharynx. No gross jugular venous distention. He does have a large neck circumference. No thyromegaly. NECK: Grossly, there were no palpable lymph nodes in the supraclavicular or submandibular lymph node chains. LUNGS: Auscultation of both lung landry significant mostly for diminished bilateral breath sounds, prolonged expiratory phase. No active wheezing at the time of my evaluation. No accessory muscle use. ABDOMEN: Soft, full, protuberant. Bowel sounds are positive, nontender, no palpable hepatosplenomegaly. EXTREMITIES: Without overt digital clubbing or cyanosis. No pedal edema. Pedal pulses are 2+ bilaterally. NEUROLOGIC: Pupils are equal, round, about 3 mm, reactive to light. Extraocular muscle movements are intact. He moves all 4 extremities spontaneously. SKIN: Normal turgor in the areas examined without overt cellulitis or rash. He has abrasion over the right orbit from his fall. Please see the wound care nurse's notes for full description of his skin. PSYCHIATRIC: His mood was normal. His affect was appropriate. LABORATORY DATA: From my review are as follows: Admission white cell count 6500, hemoglobin 13.2, hematocrit 42.8, platelet count 197. No manual differential. INR 0.96. Arterial blood gas showed a pH of 7.31, pCO2 of 87, pO2 of 64 that was on 2 liters nasal cannula at presentation. Serum sodium 142, potassium 4.8, chloride 95, bicarbonate 48, BUN 32, creatinine 1.1, glucose 137. Troponin was slightly elevated at 0.09. BNP elevated at 1916. Liver function tests otherwise essentially within normal limits. Coronavirus PCR testing is negative. No microbiology studies for my review. Chest x-ray was done. I have reviewed the chest x-ray as well as the radiologist's interpretation. He has chronic changes in particular to the left mid lung zones areas of what appears to be atelectasis, small volume atelectasis as well as in the right mid lung zone hyperinflation consistent with COPD, borderline cardiomegaly, no gross pneumothorax, no gross bony fracture. A CT of the head and brain was also done. I have reviewed the report and it shows no acute intracranial abnormality. ASSESSMENT: 1. Acute on chronic hypoxemic and hypercapnic respiratory failure. 2. Acute chronic obstructive pulmonary disease exacerbation. 3. Fall with injury to the right anterior skull. 4. Obesity. 5. History of obesity hypoventilation syndrome. 6. Likely obstructive sleep apnea. 7. Acute kidney injury, mild. 8. Possible cardiomyopathy. 9. Non-ST elevation myocardial infarction. PLAN: I do agree with current therapies. I will be adding IV systemic steroids. I will go with Solu-Medrol 40 mg IV q. 12 hours. I have advised him to follow up with the [facility] post-discharge for completion of his sleep study. Bilevel positive airway pressure ventilation therapy will be used p.r.n. for increased work of breathing with continued CO2 retention. Restrictive oxygen therapies in the short term targeting about 88-90% O2 sats in this gentleman with severe COPD. He will benefit from a course of community-acquired pneumonia therapy. I will treat him with Zithromax p.o. for about 5 days. Otherwise, he will be placed on GI prophylaxis as well as DVT prophylaxis. Flu and pneumonia vaccination will be addressed per protocol. We will continue his Singulair. He will watch him closely as he could very well decompensate. Thank you very much for the consult. We will follow along. We will make further recommendations as picture progresses/becomes clearer. Continued tobacco abstinence has been encouraged. JOB# [id number] DORINDA/JAZZMINE ALCARAZ
[2020-08-30] MEDS ORDERED: FUROSEMIDE 20 MG/2 ML INJ ONE (06:31)
[2020-08-30] MEDS: FUROSEMIDE 20 MG/2 ML INJ IV SCH (06:36)
[2020-08-30] MEDS ORDERED: ARFORMOTEROL 15 MCG/2 ML NEBU IH ONE ×2 (09:17→22:22)
[2020-08-30] MEDS ORDERED: BUDESONIDE 0.5 MG/2 ML NEBU IH ONE ×2 (09:17→22:22)
[2020-08-30] MEDS ORDERED: IPRATROPIUM/ALBUTEROL SULFATE 3 ML AMPUL.NEB IH ONE ×2 (09:17→22:22)
[2020-08-30] MEDS: BUDESONIDE 0.5 MG/2 ML NEBU IH SCH ×2 (09:26→22:31)
[2020-08-30] MEDS: IPRATROPIUM/ALBUTEROL SULFATE 3 ML AMPUL.NEB IH SCH ×3 (09:26→22:31)
[2020-08-30] MEDS: ARFORMOTEROL 15 MCG/2 ML NEBU IH SCH ×3 (09:26→22:31)
[2020-08-30] MEDS ORDERED: FAMOTIDINE 20 MG/2 ML INJ IV ONE (10:04)
[2020-08-30] MEDS ORDERED: amLODIPine 10 MG TAB ONE (10:04)
[2020-08-30] MEDS ORDERED: LISINOPRIL 20 MG TAB ONE (10:06)
[2020-08-30] MEDS ORDERED: AZITHROMYCIN 250 MG TAB ONE (10:06)
[2020-08-30] MEDS: LISINOPRIL 20 MG TAB PO SCH (10:17)
[2020-08-30] MEDS: FAMOTIDINE 20 MG TAB PO SCH (10:21)
[2020-08-30] MEDS: AZITHROMYCIN 250 MG TAB PO SCH (10:21)
[2020-08-30] MEDS: amLODIPine 10 MG TAB PO SCH (10:22)
--- NOTE | 2020-08-30 11:59 | Progress Note ---
Assessment and Plan Elevated troponin, nonspecific 04/2020 LHC at [facility]: no significant CAD, LVEF 60%. Abnormal ECG unchanged from previous Acute hypoxic respiratory failure COPD on home O2 Hypertension Conservative cardiac management. Subjective Date of service: 08/30/20 Principal diagnosis: AE-COPD; AC on Ch Hypercapnic & hypoxemic resp failure; SALLY/OHS Interval history: Patient is alert and oriented, resting in bed and appears comfortable. He has no chest pain and no palpitations. Objective Vital Signs Pulse Pulse Resp Resp BP Pulse Ox 08/30/20 11:00 74 15 147/73 86 08/30/20 10:22 85 147/73 08/30/20 10:17 86 147/73 08/30/20 10:00 86 12 147/73 94 08/30/20 09:00 65 14 160/87 93 08/30/20 08:00 55 L 67 14 18 160/87 93 08/30/20 07:00 55 L 17 160/87 91 08/30/20 06:00 57 L 15 160/87 92 08/30/20 05:23 62 08/30/20 05:00 55 L 17 152/77 95 08/30/20 04:00 62 16 152/77 98 08/30/20 03:25 64 24 96 08/30/20 03:00 66 21 157/75 94 08/30/20 02:00 72 22 157/75 95 08/30/20 01:00 60 20 152/73 92 08/30/20 00:00 63 15 152/73 95 08/29/20 23:42 69 25 H 93 08/29/20 23:00 64 16 111/68 95 08/29/20 22:00 66 23 111/68 96 08/29/20 21:35 67 18 98 08/29/20 21:00 68 24 111/68 96 08/29/20 20:26 59 L 17 111/68 96 08/29/20 20:00 73 17 111/68 92 08/29/20 19:41 69 29 H 144/64 95 08/29/20 19:40 95 08/29/20 19:39 72 29 H 08/29/20 18:00 63 11 L 144/64 89 08/29/20 16:19 72 20 147/73 89 08/29/20 16:01 89 13 147/73 92 08/29/20 14:40 96 11/15/20 14:20 90 08/29/20 14:01 93 H 20 113/80 64 L 08/29/20 13:31 104 H 18 113/80 66 L 08/29/20 13:01 95 H 23 113/80 72 L 08/29/20 12:31 96 H 16 113/80 52 L 08/29/20 12:00 85 14 113/80 92 - Physical Examination General: No Apparent Distress HEENT: Positive: PERRL Neck: Positive: neck supple Cardiac: Positive: Reg Rate and Rhythm Neuro: Positive: Grossly Intact Extremities: Absent: edema
--- NOTE | 2020-08-30 12:01 | Progress Note ---
Assessment and Plan Assessment and plan: 64 YO Male with COPD, Chronic Respiratory Failure on Home Oxygen, Obesity Hypoventilation Syndrome presents to ED for evaluation. Patient states that he has experienced shortness of breath, dizziness, weakness which was followed by a fall. Patient states that he has experienced shortness of breath, weakness, decreased exercise tolerance, orthopnea, paroxysmal nocturnal dyspnea over the past 3 to 4 days with persistent symptoms over the same timeframe. Patient reports lack of relief with increased nebulizer and inhaler use. EMS notified and upon arrival the patient was found to be in distress and subsequently transported to [facility] for further care and evaluation of the aforementioned symptoms. Patient seen and evaluated in the emergency department. All lab and imaging studies reviewed. The patient was found to have a pulse oximetry of 77% on room air which is consistent with acute hypoxemic respiratory failure. The patient was placed on increased supplemental oxygen with mild relief in symptoms. Patient also found to have symptoms consistent with CHF decompensation as well as laboratory values consistent with type II NSTEMI. Cardiology team consulted. Patient admitted to telemetry and initiated on CHF protocol due to increased risk of cardiac decompensation. Patient denies fever, chills, palpitations, productive cough, skin rash, recent ill contacts, prolonged travel/immobility, unilateral leg pain, calf pain, individual/family history of DVT/PE/bleeding/blood clotting disorders, or known exposure to COVID- 19. Prior admission on 10/26/2015 reviewed. All medication listed at time of admission has been reconciled. Advanced care planning conducted in the emergency department. Patient improving but still not at baseline. Per cardiology Further evaluation shows that just 3 months ago, he underwent a cardiac catheterization at [facility], no significant coronary artery disease was found, and ejection fraction was normal at 60%. EKG on this presentation was normal sinus rhythm, occasional PAC, left ventricle hypertrophy with repolarization abnormalities of LVH which are chronic on his ECGs dating back to 2016. Patient has no active cardiac issues, the troponin measurement is likely nonspecific finding, no further cardiac ischemic work-up is indicated. Following my discussion with family, it appears to be a COPD exacerbation, Will continue management as such and will obtain Pulmonary evaluation including 08/29: Continue supportive care, continue IV steroids as indicated by e learning coordinator. Patient may benefit from BiPAP at nighttime. We will continue in-house treatment but still hypoxic with high level of oxygen. 08/30: Did well with Bipap last night considering CO2 in the 90s now improving. Still awaiting for bed on the floor. We will continue aggressive management and titrating and discharge when stable from pulmonary. COPD Exacerbation Acute on chronic Respiratory Failure with Hypoxia and Hypercapenia Type 2 NSTEMI Obesity Hypoventilation Syndrome Morbid Obesity Metabolic Alkalosis-Chronic Hyperkalemia Chronic congestive heart failure presumed diastolic Plan Continue supportive care Obtain covid testing Kayxalate and recheck Await Pulmonary consultation Oxygen therapy, PER PATIENT MAY NEED TO GO UP TO 4 LITERS AT NIGHT. Continue abx at this time Discussed with family Steroids-inhaled Monitor mental status History Interval history: Patient seen and examined, still with shortness of breath down to 4 L. Hospitalist Physical - Physical exam Narrative exam: General appearance: Present: mild distress, encouraged to elevate hob whole lying down - EENT Eyes: Present: PERRL, chronic erythema eyes. ENT: hearing intact, clear oral mucosa - Neck Neck: Present: supple, normal ROM - Respiratory Respiratory effort: labored, accessory muscle use persisit, Respiratory: bilateral: crackles, rales - Cardiovascular Heart Sounds: Present: S1 & S2. Absent: rub, click - Extremities Extremities: pulses symmetrical Extremity abnormal: edema Peripheral Pulses: within normal limits - Abdominal General gastrointestinal: Present: soft, non-tender, non-distended, normal bowel sounds Male genitourinary: Present: normal - Integumentary Integumentary: Present: clear, warm, dry - Musculoskeletal Musculoskeletal: gait normal, strength equal bilaterally - Psychiatric Psychiatric: appropriate mood/affect, intact judgment & insight - Neurologic Neurologic: CNII-XII intact, moves all extremities - Constitutional Vitals: Temp Pulse Resp BP Pulse Ox 97.7 F 74 15 147/73 86 08/29/20 08:00 08/30/20 11:00 08/30/20 11:00 08/30/20 11:00 08/30/20 11:00 General appearance: Present: mild distress HEART Score - HEART Score Troponin: Troponin T 0.108 ng/mL (0.00-0.029) H* 08/28/20 17:23 Results - Labs CBC & Chem 7: 08/28/20 04:40 08/29/20 09:18 Labs: Laboratory Last Values WBC 6.7 K/mm3 (4.5-11.0) 08/28/20 04:40 RBC 4.08 M/mm3 (3.65-5.03) 08/28/20 04:40 Hgb 12.9 gm/dl (11.8-15.2) 08/28/20 04:40 Hct 41.6 % (35.5-45.6) 08/28/20 04:40 MCV 102 fl (84-94) H 08/28/20 04:40 MCH 32 pg (28-32) 08/28/20 04:40 MCHC 31 % (32-34) L 08/28/20 04:40 RDW 18.2 % (13.2-15.2) H 08/28/20 04:40 Plt Count 210 K/mm3 (140-440) 08/28/20 04:40 Lymph % (Auto) 10.1 % (13.4-35.0) L 08/28/20 04:40 [place] % (Auto) 11.4 % (0.0-7.3) H 08/28/20 04:40 Eos % (Auto) 0.1 % (0.0-4.3) 08/28/20 04:40 Baso % (Auto) 0.1 % (0.0-1.8) 08/28/20 04:40 Lymph # (Auto) 0.7 K/mm3 (1.2-5.4) L 08/28/20 04:40 [place] # (Auto) 0.8 K/mm3 (0.0-0.8) 08/28/20 04:40 Eos # (Auto) 0.0 K/mm3 (0.0-0.4) 08/28/20 04:40 Baso # (Auto) 0.0 K/mm3 (0.0-0.1) 08/28/20 04:40 Seg Neutrophils % 78.3 % (40.0-70.0) H 08/28/20 04:40 Seg Neutrophils # 5.3 K/mm3 (1.8-7.7) 08/28/20 04:40 PT 13.0 Sec. (12.2-14.9) 08/27/20 09:53 INR 0.96 (0.87-1.13) 08/27/20 09:53 ABG pH 7.435 pH Units (7.350-7.450) 08/29/20 20:35 POC ABG pCO2 90.8 mmHg (32.0-48.0) H 08/29/20 15:41 ABG pCO2 65.7 mm Hg 08/29/20 20:35 POC ABG pO2 138.3 mmHg (83-108) H 08/29/20 15:41 ABG pO2 74.7 mm Hg (80.0-90.0) L 08/29/20 20:35 POC ABG HCO3 42.4 08/29/20 15:41 ABG HCO3 43.1 mmol/L (20.0-26.0) H 08/29/20 20:35 ABG O2 Saturation 97.0 % (95.0-99.0) 08/29/20 20:35 ABG O2 Content 19.0 (0.0-44) 08/29/20 20:35 POC ABG Base Excess 11.3 08/29/20 15:41 ABG Base Excess 15.5 mmol/L (-2.0-3.0) H 08/29/20 20:35 ABG Hemoglobin 14.3 gm/dl (14.0-18.0) 08/29/20 20:35 ABG Carboxyhemoglobin 1.9 % (0.0-5.0) 08/29/20 20:35 ABG Methemoglobin 0.6 % (0.0-1.5) 08/29/20 20:35 ABG Sodium 138.0 mmol/L (136.0-145.0) 08/29/20 15:41 ABG Potassium 4.8 mmol/L (3.40-4.50) H 08/29/20 15:41 ABG Chloride 92.0 mmol/L (98-107) L 08/29/20 15:41 ABG Glucose 135 mg/dL (65-95) H 08/29/20 15:41 Oxyhemoglobin 94.6 % (95.0-99.0) L 08/29/20 20:35 FiO2 50 % 08/29/20 20:35 Sodium 139 mmol/L (137-145) 08/29/20 09:18 Potassium 5.2 mmol/L (3.6-5.0) H 08/29/20 09:18 Chloride 91.5 mmol/L (98-107) L 08/29/20 09:18 Carbon Dioxide 46 mmol/L (22-30) H* 08/29/20 09:18 Anion Gap 7 mmol/L 08/29/20 09:18 BUN 24 mg/dL (9-20) H 08/29/20 09:18 Creatinine 0.8 mg/dL (0.8-1.3) 08/29/20 09:18 Estimated GFR > 60 ml/min 08/29/20 09:18 BUN/Creatinine Ratio 30 % 08/29/20 09:18 Glucose 119 mg/dL (75-100) H 08/29/20 09:18 POC Glucose 143 mg/dL (70-105) H 08/29/20 11:24 Calcium 9.1 mg/dL (8.4-10.2) 08/29/20 09:18 Total Bilirubin 0.60 mg/dL (0.1-1.2) 08/28/20 04:40 AST 15 units/L (5-40) 08/28/20 04:40 ALT 11 units/L (7-56) 08/28/20 04:40 Alkaline Phosphatase 81 units/L (35-129) 08/28/20 04:40 Total Creatine Kinase 74 units/L (55-170) 08/28/20 17:23 CK-MB (CK-2) 5.2 ng/mL (0.0-4.0) H 08/28/20 17:23 CK-MB (CK-2) Rel Index 7.0 (0-4) H 08/28/20 17:23 Troponin T 0.108 ng/mL (0.00-0.029) H* 08/28/20 17:23 NT-Pro-B Natriuret Pep 1916 pg/mL (0-900) H 08/27/20 09:53 Total Protein 6.4 g/dL (6.3-8.2) 08/28/20 04:40 Albumin 3.5 g/dL (3.9-5) L 08/28/20 04:40 Albumin/Globulin Ratio 1.2 % 08/28/20 04:40 Triglycerides 129 mg/dL (2-149) 08/27/20 09:53 Cholesterol 210 mg/dL (50-199) H 08/27/20 09:53 LDL Cholesterol Direct 138 mg/dL (50-130) H 08/27/20 09:53 HDL Cholesterol 48 mg/dL (40-59) 08/27/20 09:53 Cholesterol/HDL Ratio 4.37 % 08/27/20 09:53 Arterial Blood Glucose 135 mg/dL (65-95) H 08/29/20 15:41 Arterial Blood Ionized Calcium 4.7 mg/dL (4.6-5.3) 08/29/20 15:41 Coronavirus (PCR) Negative (Negative) 08/28/20 11:41 - Diagnostic Impressions Diagnostic Impressions: Echocardiogram 08/27/20 19:39 Transthoracic Echocardiogram Indication: CHF BP: 186/59 Conclusions *Mild concentric left ventricular hypertrophy is observed. *Global left ventricular wall motion and contractility are within normal limits. *The estimated ejection fraction is 60-65%. *Abnormal left ventricular diastolic filling is observed, consistent with impaired relaxation. *The left atrium is mildly dilated. *There is no pericardial effusion. Findings Procedure Info: The study quality is fair. Left Ventricle: The left ventricular chamber size is normal. Mild concentric left ventricular hypertrophy is observed. Global left ventricular wall motion and contractility are within normal limits. Global left ventricular systolic function is normal. The estimated ejection fraction is 60-65%. Abnormal left ventricular diastolic filling is observed, consistent with impaired relaxation. Left Atrium: The left atrium is mildly dilated. Right Ventricle: The right ventricular chamber size and systolic function are within normal limits. Right Atrium: The right atrium is mildly dilated. Aortic Valve: The aortic valve is trileaflet. Mild aortic cusp sclerosis is present. There is no evidence of aortic regurgitation. There is no evidence of aortic stenosis. Mitral Valve: The mitral valve leaflets appear normal. There is trace of mitral regurgitation. There is no evidence of mitral stenosis. Tricuspid Valve: The tricuspid valve leaflets are normal. There is mild tricuspid regurgitation. The right ventricular systolic pressure is calculated at 35 mmHg. There is no tricuspid stenosis. Pulmonic Valve: The pulmonic valve appears normal. There is trace pulmonic regurgitation. There is no pulmonic stenosis. Pericardium: There is no pericardial effusion. Aorta: The aorta appears normal. Pulmonary Artery: The main pulmonary artery is not well visualized. Venous: The inferior vena cava appears normal in size. There is a greater than 50% respiratory change in the inferior vena cava dimension. Measurements Chambers 2D Name Value Normal Range IVSd (2D) 1.36 cm (0.6 - 1.1) LVPWd (2D) 1.25 cm (0.6 - 1.1) LVIDd (2D) 5.39 cm (3.7 - 5.6) LVIDs (2D) 3.52 cm (2 - 3.8) LV FS (2D) 34.6 % - EF Teichholz (2D) 63.22 % - Ao root diameter (2D) 2.91 cm (2 - 3.7) Volumes/Mass Name Value Normal Range LA ESV SP 4CH (A/L) 95.05 ml - LA ESV SP 2CH (A/L) 91.9 ml - LA ESV BP (A/L) 95.07 ml - LA ESV BP (A/L) index 42.44 ml/m2 - LA ESV SP 4CH (MOD) 92.64 ml - LA ESV SP 2CH (MOD) 89.95 ml - LA ESV BP (MOD) 92.57 ml - LA ESV BP (MOD) index 41.33 ml/m2 - LV EDV SP 4CH (MOD) 109.96 ml - LV ESV SP 4CH (MOD) 41.09 ml - EF SP 4CH (MOD) 62.63 % - LV EDV SP 2CH (MOD) 136.13 ml - LV ESV SP 2CH (MOD) 35.11 ml - EF SP 2CH (MOD) 74.21 % - LV EDV BP 125.58 ml - LV ESV BP 39.58 ml - BP EF (MOD) 68.48 % - Diastolic/Systolic Function Name Value Normal Range MV E-wave Vmax 1 m/sec - MV deceleration time 207.6 msec - MV A-wave Vmax 0.93 m/sec - MV E:A ratio 1.08 ratio - Aortic Valve Name Value Normal Range AV Vmax 2.29 m/sec - AV VTI 40.33 cm - AV peak gradient 20.91 mmHg - AV mean gradient 10.71 mmHg - LVOT diameter 2.19 cm - LVOT Vmax 1.87 m/sec - LVOT VTI 34.2 cm - LVOT peak gradient 14.05 mmHg - LVOT mean gradient 7.22 mmHg - SV LVOT 129.19 ml - MATEO (continuity Vmax) 3.1 cm2 - MATEO (continuity VTI) 3.2 cm2 - Ascending Ao 2.86 cm - Tricuspid Valve Name Value Normal Range TV E-wave Vmax 0.56 m/sec - TR Vmax 2.85 m/sec - TR peak gradient 32.6 mmHg - RAP 3 mmHg - RVSP 35 mmHg - Pulmonic Valve/Qp:Qs Name Value Normal Range PV Vmax 1.49 m/sec - PV peak gradient 8.93 mmHg - RVOT Vmax 0.89 m/sec - RVOT VTI 20.22 cm - RVOT peak gradient 3.19 mmHg - PV acceleration time 110.37 msec - Gonzalez/IV: Voiding Method Urinal IV Catheter Type [Left INT / Saline Lock Antecubital] Active Medications - Current Medications Current Medications: Generic Name Dose Route Start Last Admin Trade Name Freq PRN Reason Stop Dose Admin Acetaminophen 650 mg 08/27/20 12:19 Tylenol PO Q4H PRN Pain MILD(1-3)/Fever >100.5/CAMPBELL Albuterol 2.5 mg 08/27/20 12:19 Proventil IH Q4HRT PRN Shortness Of Breath Albuterol/Ipratropium 1 ampul 08/29/20 09:00 08/30/20 10:36 Duoneb *Not For Prn Use* IH Not Given Q6HRT [facility] Amlodipine Besylate 10 mg 08/29/20 10:00 08/30/20 10:22 Amlodipine PO 10 mg QDAY RADHA Administration Arformoterol Tartrate 15 mcg 08/28/20 08:00 08/30/20 10:37 Brovana Nebu IH Not Given Q12HRT RADHA Azithromycin 500 mg 08/28/20 20:00 08/30/20 10:21 Zithromax PO 09/01/20 10:01 500 mg QDAY RADHA Administration Budesonide 0.5 mg 08/28/20 08:00 08/30/20 09:26 Pulmicort IH 0.5 mg Q12HRT RADHA Administration Enoxaparin Sodium 40 mg 08/29/20 22:00 08/30/20 03:43 Enoxaparin SUB-Q 40 mg QDAY@2200 RADHA Administration Protocol Famotidine 20 mg 08/30/20 10:00 08/30/20 10:21 Pepcid PO 20 mg QDAY RADHA Administration Furosemide 20 mg 08/27/20 18:00 08/30/20 06:36 Lasix IV 20 mg BID@0600,1800 RADHA Administration Lisinopril 20 mg 08/29/20 10:00 08/30/20 10:17 Zestril PO 20 mg QDAY RADHA Administration Methylprednisolone Sodium Succinate 40 mg 08/28/20 22:00 08/30/20 10:17 Solu-Medrol IV 40 mg Q12HR RADHA Administration Miscellaneous Medication 1 drop 08/28/20 07:15 08/30/20 04:38 Polymyxin B Sulf/Trimethoprim [Polytrim Eye Drops] OP Not Given Q3H [facility] Montelukast Sodium 10 mg 08/28/20 22:00 08/30/20 03:41 Singulair PO 10 mg QHS RADHA Administration Ondansetron HCl 4 mg 08/27/20 12:19 Zofran IV Q8H PRN Nausea And Vomiting Sodium Chloride 10 ml 08/27/20 22:00 08/30/20 10:21 Sodium Chloride Flush Syringe 10 Ml IV 10 ml BID RADHA Administration Sodium Chloride 10 ml 08/27/20 12:19 08/30/20 06:42 Sodium Chloride Flush Syringe 10 Ml IV 10 ml PRN PRN Administration LINE FLUSH
--- NOTE | 2020-08-30 17:40 | Progress Note ---
Assessment and Plan Patient awake. Resting on High flow nasal canula. o2 saturation 93%. Says breathing better. Patient about to go on BIPAP. Patient denies fever. No leukocytosis. Chest xray done 08/27/20 reported Interstitial edema has cleared. Parenchymal density in the left mid to lower lung is unchanged from previous exams and thought to represent scarring. No pleural fluid. - Patient Problems (1) Acute exacerbation of chronic obstructive pulmonary disease (COPD) Current Visit: Yes Status: Acute Plan to address problem: BIPAP 20/8, rate 20, FIO2 50%. Albuterol/atrovent aerosol treatments q 6 hours. Continue I/V solumedrol. Continue S/C Lovenox Continue famotidine. Continue Zithromax. (2) Acute on chronic respiratory failure with hypoxia and hypercapnia Current Visit: Yes Status: Acute Plan to address problem: BIPAP 20/8, rate 20, FIO2 50%. Albuterol/atrovent aerosol treatments q 6 hours. Continue I/V solumedrol. Continue S/C Lovenox Continue famotidine. Continue Zithromax. (3) Hypertension Current Visit: Yes Status: Acute Plan to address problem: Management as per primary care. (4) NSTEMI (non-ST elevated myocardial infarction) Current Visit: Yes Status: Acute Plan to address problem: Management as per cardiology. (5) Obesity hypoventilation syndrome Current Visit: Yes Status: Acute Plan to address problem: BIPAP 20/8, rate 20, FIO2 50%. (6) CHF (congestive heart failure) Current Visit: No Status: Acute Plan to address problem: Management as per cardiology. Subjective Date of service: 08/30/20 Principal diagnosis: AE-COPD; AC on Ch Hypercapnic & hypoxemic resp failure; SALLY/OHS Interval history: Patient awake. Resting on High flow nasal canula. o2 saturation 93%. Says breathing better. Patient about to go on BIPAP. Patient denies fever. No leukocytosis. Chest xray done 08/27/20 reported Interstitial edema has cleared. Parenchymal density in the left mid to lower lung is unchanged from previous exams and thought to represent scarring. No pleural fluid. Objective Vital Signs - 12hr 08/30/20 08/30/20 08/30/20 06:00 07:00 08:00 Pulse Rate 57 L 55 L 55 L Pulse Rate [ 67 Anterior Bilateral Throughout] Respiratory 15 17 14 Rate Respiratory 18 Rate [Anterior Bilateral Throughout] Blood Pressure 160/87 160/87 160/87 O2 Sat by Pulse 92 91 93 Oximetry 08/30/20 08/30/20 08/30/20 09:00 10:00 10:17 Pulse Rate 65 86 86 Pulse Rate [ Anterior Bilateral Throughout] Respiratory 14 12 Rate Respiratory Rate [Anterior Bilateral Throughout] Blood Pressure 160/87 147/73 147/73 O2 Sat by Pulse 93 94 Oximetry 08/30/20 08/30/20 08/30/20 10:22 11:00 12:00 Pulse Rate 85 74 79 Pulse Rate [ Anterior Bilateral Throughout] Respiratory 15 21 Rate Respiratory Rate [Anterior Bilateral Throughout] Blood Pressure 147/73 147/73 133/64 O2 Sat by Pulse 86 88 Oximetry 08/30/20 08/30/20 08/30/20 13:00 14:00 15:00 Pulse Rate 74 82 Pulse Rate [ Anterior Bilateral Throughout] Respiratory 12 26 H Rate Respiratory Rate [Anterior Bilateral Throughout] Blood Pressure 133/64 113/52 113/52 O2 Sat by Pulse 90 87 98 Oximetry 08/30/20 08/30/20 16:00 17:00 Pulse Rate Pulse Rate [ Anterior Bilateral Throughout] Respiratory Rate Respiratory Rate [Anterior Bilateral Throughout] Blood Pressure 123/76 123/76 O2 Sat by Pulse 98 98 Oximetry Constitutional: no acute distress, alert, other (elderly obese male with mildly increased respiratory effort at rest) Eyes: non-icteric ENT: oropharynx moist Neck: supple, no lymphadenopathy, no JVD Effort: mildly labored Ascultation: Bilateral: diminished breath sounds, other (prolonged expiratory phase) Percussion: Bilateral: not dull Cardiovascular: regular rate and rhythm Gastrointestinal: normoactive bowel sounds, soft, non-tender, non-distended (p rotuberabt) Integumentary: normal Extremities: no cyanosis, no edema, pulses normal, no ischemia or petechiae Neurologic: normal mental status, non-focal exam, pupils equal and round, CN II- XII normal Psychiatric: mood appropriate, affect normal CBC and BMP: 08/31/20 06:01 08/31/20 06:01 ABG, PT/INR, D-dimer: ABG ABG pH 7.435 pH Units (7.350-7.450) 08/29/20 20:35 POC ABG pCO2 90.8 mmHg (32.0-48.0) H 08/29/20 15:41 ABG pCO2 65.7 mm Hg 08/29/20 20:35 POC ABG pO2 138.3 mmHg (83-108) H 08/29/20 15:41 ABG pO2 74.7 mm Hg (80.0-90.0) L 08/29/20 20:35 POC ABG HCO3 42.4 08/29/20 15:41 ABG O2 Saturation 97.0 % (95.0-99.0) 08/29/20 20:35 PT/INR, D-dimer PT 13.0 Sec. (12.2-14.9) 08/27/20 09:53 INR 0.96 (0.87-1.13) 08/27/20 09:53 Abnormal lab findings: Abnormal Labs 08/27/20 08/27/20 08/27/20 09:53 09:53 10:30 MCV 103 H MCHC 31 L RDW 18.0 H Lymph % (Auto) 8.2 L Leon % (Auto) 9.3 H Lymph # (Auto) 0.5 L Seg Neutrophils % 81.3 H ABG pH 7.314 L POC ABG pCO2 POC ABG pO2 ABG pO2 64.1 L ABG HCO3 42.9 H ABG O2 Saturation 93.4 L ABG Base Excess 13.1 H ABG Hemoglobin 12.8 L ABG Potassium ABG Chloride ABG Glucose Oxyhemoglobin 90.5 L Potassium Chloride 94.9 L Carbon Dioxide 48 H* D BUN 32 H Glucose 137 H POC Glucose CK-MB (CK-2) CK-MB (CK-2) Rel Index Troponin T 0.090 H NT-Pro-B Natriuret Pep 1916 H Albumin Cholesterol 210 H LDL Cholesterol Direct 138 H Arterial Blood Glucose 08/28/20 08/28/20 08/28/20 04:40 04:40 12:19 MCV 102 H MCHC 31 L RDW 18.2 H Lymph % (Auto) 10.1 L Leon % (Auto) 11.4 H Lymph # (Auto) 0.7 L Seg Neutrophils % 78.3 H ABG pH POC ABG pCO2 POC ABG pO2 ABG pO2 ABG HCO3 ABG O2 Saturation ABG Base Excess ABG Hemoglobin ABG Potassium ABG Chloride ABG Glucose Oxyhemoglobin Potassium 5.6 H Chloride 96.0 L Carbon Dioxide 43 H* BUN 29 H Glucose 103 H POC Glucose CK-MB (CK-2) 4.8 H CK-MB (CK-2) Rel Index 6.8 H Troponin T 0.099 H NT-Pro-B Natriuret Pep Albumin 3.5 L Cholesterol LDL Cholesterol Direct Arterial Blood Glucose 08/28/20 08/29/20 08/29/20 17:23 09:18 11:24 MCV MCHC RDW Lymph % (Auto) Leon % (Auto) Lymph # (Auto) Seg Neutrophils % ABG pH POC ABG pCO2 POC ABG pO2 ABG pO2 ABG HCO3 ABG O2 Saturation ABG Base Excess ABG Hemoglobin ABG Potassium ABG Chloride ABG Glucose Oxyhemoglobin Potassium 5.2 H Chloride 91.5 L Carbon Dioxide 46 H* BUN 24 H Glucose 119 H POC Glucose 143 H CK-MB (CK-2) 5.2 H CK-MB (CK-2) Rel Index 7.0 H Troponin T 0.108 H* NT-Pro-B Natriuret Pep Albumin Cholesterol LDL Cholesterol Direct Arterial Blood Glucose 08/29/20 08/29/20 15:41 20:35 MCV MCHC RDW Lymph % (Auto) Leon % (Auto) Lymph # (Auto) Seg Neutrophils % ABG pH 7.287 L POC ABG pCO2 90.8 H POC ABG pO2 138.3 H ABG pO2 74.7 L ABG HCO3 43.1 H ABG O2 Saturation ABG Base Excess 15.5 H ABG Hemoglobin ABG Potassium 4.8 H ABG Chloride 92.0 L ABG Glucose 135 H Oxyhemoglobin 94.6 L Potassium Chloride Carbon Dioxide BUN Glucose POC Glucose CK-MB (CK-2) CK-MB (CK-2) Rel Index Troponin T NT-Pro-B Natriuret Pep Albumin Cholesterol LDL Cholesterol Direct Arterial Blood Glucose 135 H Chest x-ray: report reviewed, image reviewed Additional Studies: CHEST 1 VIEW 08/27/20 INDICATION: SOB COMPARISON: 08/23/2020 FINDINGS: Support devices: None Heart: Stable. Lungs/Pleura: Interstitial edema has cleared. Parenchymal density in the left mid to lower lung is unchanged from previous exams and thought to represent scarring. No pleural fluid. IMPRESSION: 1. Improvement, with no acute disease on today's exam. Allied health notes reviewed: nursing
[2020-08-30] MEDS ORDERED: FUROSEMIDE 40 MG/4 ML INJ ONE (23:59)
[2020-08-31] MEDS: FUROSEMIDE 20 MG/2 ML INJ IV SCH ×3 (00:28→17:33)
[2020-08-31] MEDS: ENOXAPARIN 40 MG/0.4 ML INJ SUB-Q SCH ×2 (00:29→21:25)
[2020-08-31] MEDS ORDERED: methylPREDNISolone Sod Succinate 40 MG/1 ML INJ ONE (00:32)
[2020-08-31] MEDS: MONTELUKAST 10 MG TAB PO SCH ×2 (00:33→21:25)
[2020-08-31] MEDS: methylPREDNISolone Sod Succinate 40 MG/1 ML INJ IV SCH ×3 (00:35→21:24)
[2020-08-31] MEDS: IPRATROPIUM/ALBUTEROL SULFATE 3 ML AMPUL.NEB IH SCH ×5 (01:55→20:46)
[2020-08-31 06:28] LABS: Hematocrit 44.3 % (35.5-45.6); Hemoglobin 14.2 gm/dl (11.8-15.2); Mean Corpuscular HGB Conc 32 % (32-34); Mean Corpuscular Volume 100 fl (84-94); Platelet Count 213 K/mm3 (140-440); Red Blood Count 4.45 M/mm3 (3.65-5.03); Red Cell Distribution Width 17.8 % (13.2-15.2)
[2020-08-31 06:45] LABS: BUN/Creatinine Ratio 28; Blood Urea Nitrogen 33 mg/dL (9-20); Calcium 9.3 mg/dL (8.4-10.2); Hemolysis Index 22
[2020-08-31] MEDS ORDERED: FUROSEMIDE 20 MG/2 ML INJ ONE (06:45)
[2020-08-31] MEDS: ARFORMOTEROL 15 MCG/2 ML NEBU IH SCH ×3 (08:02→20:46)
[2020-08-31] MEDS: BUDESONIDE 0.5 MG/2 ML NEBU IH SCH ×2 (08:02→20:46)
--- NOTE | 2020-08-31 08:38 | Progress Note ---
Assessment and Plan Assessment and plan: --Acute exacerbation of COPD ; Oxygen titrate O2 sats to more than 90% Evaluate for home oxygen Nebulizers, IV steroids, IV antibiotics, inhalation steroids Supportive care --Chronic metabolic alkalosis; Secondary to obesity, closely monitor Oxygen titrate O2 sats more than 90% Pulmonology is following --History of chronic diastolic congestive heart failure; Continue current cardiac medications, fluid restriction Input output monitoring, cardiology following --Non-ST elevation IA/probably type II Patient had negative cardiac cath in April 2020 at [facility] recommend current medical management --Obesity; BMI 32.1 Patient needs weight reduction when medically stable --Possible obstructive sleep apnea; CPAP/BiPAP at night Patient needs outpatient sleep study to rule out SALLY --DVT prophylaxis; Lovenox --Full CODE STATUS We will closely monitor the patient and adjust management as needed Plan of care reviewed with the patient and his nurse Brief history; 64 YO Male with COPD, Chronic Respiratory Failure on Home Oxygen, Obesity Hypoventilation Syndrome presents to ED for evaluation. Patient states that he has experienced shortness of breath, dizziness, weakness which was followed by a fall. Patient states that he has experienced shortness of breath, weakness, dec reased exercise tolerance, orthopnea, paroxysmal nocturnal dyspnea over the past 3 to 4 days with persistent symptoms over the same timeframe. Patient reports lack of relief with increased nebulizer and inhaler use. EMS notified and upon arrival the patient was found to be in distress and subsequently transported to [facility] for further care and evaluation of the aforementioned symptoms. Patient see n and evaluated in the emergency department. All lab and imaging studies reviewed. The patient was found to have a pulse oximetry of 77% on room air which is consistent with acute hypoxemic respiratory failure. The patient was placed on increased supplemental oxygen with mild relief in symptoms. Patient also found to have symptoms consistent with CHF decompensation as well as laboratory values consistent with type II NSTEMI. Cardiology team consulted. Patient admitted to telemetry and initiated on CHF protocol due to increased risk of cardiac decompensation. Patient denies fever, chills, palpitations, productive cough, skin rash, recent ill contacts, prolonged travel/immobility, unilateral leg pain, calf pain, individual/family history of DVT/PE/bleeding/blood clotting disorders, or known exposure to COVID-19. Prior admission on 10/26/2015 reviewed. All medication listed at time of admission has been reconciled. Advanced care planning conducted in the emergency department. Patient improving but still not at baseline. Per cardiology Further evaluation shows that just 3 months ago, he underwent a cardiac catheterization at [facility], no significant coronary artery disease was found, and ejection fraction was normal at 60%. EKG on this presentation was normal sinus rhythm, occasional PAC, left ventricle hypertrophy with repolarization abnormalities of LVH which are chronic on his ECGs dating back to 2016. Patient has no active cardiac issues, the troponin measurement is likely nonspecific finding, no further cardiac ischemic work-up is indicated. Following my discussion with family, it appears to be a COPD exacerbation, Will continue management as such and will obtain Pulmonary evaluation including 08/29: Continue supportive care, continue IV steroids as indicated by shift manager. Patient may benefit from BiPAP at nighttime. We will continue in-house treatment but still hypoxic with high level of oxygen. 08/30: Did well with Bipap last night considering CO2 in the 90s now improving. Still awaiting for bed on the floor. We will continue aggressive management and titrating and discharge when stable from pulmonary. 08/31; patient is requiring BiPAP at night, case management to set up BiPAP, patient may need outpatient sleep study Possible discharge in 1 to 2 days if stable and cleared by pulmonary History Interval history: I seen and examined the patient in the ER awaiting bed assignment Patient feels better, complains of mild shortness of breath Pulmonary and cardiology following Covid test negative Alert awake oriented Vital signs noted Hospitalist Physical - Constitutional Vitals: Temp Pulse Resp BP Pulse Ox 97.7 F 78 16 141/72 65 L 08/29/20 08:00 08/31/20 03:15 08/31/20 03:15 08/31/20 04:00 08/31/20 04:00 General appearance: Present: mild distress, well-nourished, obese - EENT Eyes: Present: PERRL, EOM intact - Neck Neck: Present: supple, normal ROM - Respiratory Respiratory effort: normal Respiratory: bilateral: diminished, rhonchi, wheezing, negative: rales - Cardiovascular Rhythm: regular Heart Sounds: Present: S1 & S2 - Extremities Extremities: no ischemia, No edema - Abdominal General gastrointestinal: soft, non-tender, non-distended, normal bowel sounds - Integumentary Integumentary: Present: clear, warm - Psychiatric Psychiatric: appropriate mood/affect, cooperative - Neurologic Neurologic: moves all extremities HEART Score - HEART Score Troponin: Troponin T 0.108 ng/mL (0.00-0.029) H* 08/28/20 17:23 Results - Labs CBC & Chem 7: 08/31/20 06:01 08/31/20 06:01 Labs: Laboratory Last Values WBC 8.0 K/mm3 (4.5-11.0) 08/31/20 06:01 RBC 4.45 M/mm3 (3.65-5.03) 08/31/20 06:01 Hgb 14.2 gm/dl (11.8-15.2) 08/31/20 06:01 Hct 44.3 % (35.5-45.6) 08/31/20 06:01 MCV 100 fl (84-94) H 08/31/20 06:01 MCH 32 pg (28-32) 08/31/20 06:01 MCHC 32 % (32-34) 08/31/20 06:01 RDW 17.8 % (13.2-15.2) H 08/31/20 06:01 Plt Count 213 K/mm3 (140-440) 08/31/20 06:01 Lymph % (Auto) 10.1 % (13.4-35.0) L 08/28/20 04:40 Butts % (Auto) 11.4 % (0.0-7.3) H 08/28/20 04:40 Eos % (Auto) 0.1 % (0.0-4.3) 08/28/20 04:40 Baso % (Auto) 0.1 % (0.0-1.8) 08/28/20 04:40 Lymph # (Auto) 0.7 K/mm3 (1.2-5.4) L 08/28/20 04:40 Butts # (Auto) 0.8 K/mm3 (0.0-0.8) 08/28/20 04:40 Eos # (Auto) 0.0 K/mm3 (0.0-0.4) 08/28/20 04:40 Baso # (Auto) 0.0 K/mm3 (0.0-0.1) 08/28/20 04:40 Seg Neutrophils % 78.3 % (40.0-70.0) H 08/28/20 04:40 Seg Neutrophils # 5.3 K/mm3 (1.8-7.7) 08/28/20 04:40 PT 13.0 Sec. (12.2-14.9) 08/27/20 09:53 INR 0.96 (0.87-1.13) 08/27/20 09:53 ABG pH 7.435 pH Units (7.350-7.450) 08/29/20 20:35 POC ABG pCO2 90.8 mmHg (32.0-48.0) H 08/29/20 15:41 ABG pCO2 65.7 mm Hg 08/29/20 20:35 POC ABG pO2 138.3 mmHg (83-108) H 08/29/20 15:41 ABG pO2 74.7 mm Hg (80.0-90.0) L 08/29/20 20:35 POC ABG HCO3 42.4 08/29/20 15:41 ABG HCO3 43.1 mmol/L (20.0-26.0) H 08/29/20 20:35 ABG O2 Saturation 97.0 % (95.0-99.0) 08/29/20 20:35 ABG O2 Content 19.0 (0.0-44) 08/29/20 20:35 POC ABG Base Excess 11.3 08/29/20 15:41 ABG Base Excess 15.5 mmol/L (-2.0-3.0) H 08/29/20 20:35 ABG Hemoglobin 14.3 gm/dl (14.0-18.0) 08/29/20 20:35 ABG Carboxyhemoglobin 1.9 % (0.0-5.0) 08/29/20 20:35 ABG Methemoglobin 0.6 % (0.0-1.5) 08/29/20 20:35 ABG Sodium 138.0 mmol/L (136.0-145.0) 08/29/20 15:41 ABG Potassium 4.8 mmol/L (3.40-4.50) H 08/29/20 15:41 ABG Chloride 92.0 mmol/L (98-107) L 08/29/20 15:41 ABG Glucose 135 mg/dL (65-95) H 08/29/20 15:41 Oxyhemoglobin 94.6 % (95.0-99.0) L 08/29/20 20:35 FiO2 50 % 08/29/20 20:35 Sodium 139 mmol/L (137-145) 08/31/20 06:01 Potassium 4.6 mmol/L (3.6-5.0) 08/31/20 06:01 Chloride 92.4 mmol/L (98-107) L 08/31/20 06:01 Carbon Dioxide 39 mmol/L (22-30) H D 08/31/20 06:01 Anion Gap 12 mmol/L 08/31/20 06:01 BUN 33 mg/dL (9-20) H 08/31/20 06:01 Creatinine 1.2 mg/dL (0.8-1.3) 08/31/20 06:01 Estimated GFR > 60 ml/min 08/31/20 06:01 BUN/Creatinine Ratio 28 % 08/31/20 06:01 Glucose 135 mg/dL (75-100) H 08/31/20 06:01 POC Glucose 143 mg/dL (70-105) H 08/29/20 11:24 Calcium 9.3 mg/dL (8.4-10.2) 08/31/20 06:01 Total Bilirubin 0.60 mg/dL (0.1-1.2) 08/28/20 04:40 AST 15 units/L (5-40) 08/28/20 04:40 ALT 11 units/L (7-56) 08/28/20 04:40 Alkaline Phosphatase 81 units/L (35-129) 08/28/20 04:40 Total Creatine Kinase 74 units/L (55-170) 08/28/20 17:23 CK-MB (CK-2) 5.2 ng/mL (0.0-4.0) H 08/28/20 17:23 CK-MB (CK-2) Rel Index 7.0 (0-4) H 08/28/20 17:23 Troponin T 0.108 ng/mL (0.00-0.029) H* 08/28/20 17:23 NT-Pro-B Natriuret Pep 1916 pg/mL (0-900) H 08/27/20 09:53 Total Protein 6.4 g/dL (6.3-8.2) 08/28/20 04:40 Albumin 3.5 g/dL (3.9-5) L 08/28/20 04:40 Albumin/Globulin Ratio 1.2 % 08/28/20 04:40 Triglycerides 129 mg/dL (2-149) 08/27/20 09:53 Cholesterol 210 mg/dL (50-199) H 08/27/20 09:53 LDL Cholesterol Direct 138 mg/dL (50-130) H 08/27/20 09:53 HDL Cholesterol 48 mg/dL (40-59) 08/27/20 09:53 Cholesterol/HDL Ratio 4.37 % 08/27/20 09:53 Arterial Blood Glucose 135 mg/dL (65-95) H 08/29/20 15:41 Arterial Blood Ionized Calcium 4.7 mg/dL (4.6-5.3) 08/29/20 15:41 Coronavirus (PCR) Negative (Negative) 08/28/20 11:41 - Diagnostic Impressions Diagnostic Impressions: Echocardiogram 08/27/20 19:39 Transthoracic Echocardiogram Indication: CHF BP: 186/59 Conclusions *Mild concentric left ventricular hypertrophy is observed. *Global left ventricular wall motion and contractility are within normal limits. *The estimated ejection fraction is 60-65%. *Abnormal left ventricular diastolic filling is observed, consistent with impaired relaxation. *The left atrium is mildly dilated. *There is no pericardial effusion. Findings Procedure Info: The study quality is fair. Left Ventricle: The left ventricular chamber size is normal. Mild concentric left ventricular hypertrophy is observed. Global left ventricular wall motion and contractility are within normal limits. Global left ventricular systolic function is normal. The estimated ejection fraction is 60-65%. Abnormal left ventricular diastolic filling is observed, consistent with impaired relaxation. Left Atrium: The left atrium is mildly dilated. Right Ventricle: The right ventricular chamber size and systolic function are within normal limits. Right Atrium: The right atrium is mildly dilated. Aortic Valve: The aortic valve is trileaflet. Mild aortic cusp sclerosis is present. There is no evidence of aortic regurgitation. There is no evidence of aortic stenosis. Mitral Valve: The mitral valve leaflets appear normal. There is trace of mitral regurgitation. There is no evidence of mitral stenosis. Tricuspid Valve: The tricuspid valve leaflets are normal. There is mild tricuspid regurgitation. The right ventricular systolic pressure is calculated at 35 mmHg. There is no tricuspid stenosis. Pulmonic Valve: The pulmonic valve appears normal. There is trace pulmonic regurgitation. There is no pulmonic stenosis. Pericardium: There is no pericardial effusion. Aorta: The aorta appears normal. Pulmonary Artery: The main pulmonary artery is not well visualized. Venous: The inferior vena cava appears normal in size. There is a greater than 50% respiratory change in the inferior vena cava dimension. Measurements Chambers 2D Name Value Normal Range IVSd (2D) 1.36 cm (0.6 - 1.1) LVPWd (2D) 1.25 cm (0.6 - 1.1) LVIDd (2D) 5.39 cm (3.7 - 5.6) LVIDs (2D) 3.52 cm (2 - 3.8) LV FS (2D) 34.6 % - EF Teichholz (2D) 63.22 % - Ao root diameter (2D) 2.91 cm (2 - 3.7) Volumes/Mass Name Value Normal Range LA ESV SP 4CH (A/L) 95.05 ml - LA ESV SP 2CH (A/L) 91.9 ml - LA ESV BP (A/L) 95.07 ml - LA ESV BP (A/L) index 42.44 ml/m2 - LA ESV SP 4CH (MOD) 92.64 ml - LA ESV SP 2CH (MOD) 89.95 ml - LA ESV BP (MOD) 92.57 ml - LA ESV BP (MOD) index 41.33 ml/m2 - LV EDV SP 4CH (MOD) 109.96 ml - LV ESV SP 4CH (MOD) 41.09 ml - EF SP 4CH (MOD) 62.63 % - LV EDV SP 2CH (MOD) 136.13 ml - LV ESV SP 2CH (MOD) 35.11 ml - EF SP 2CH (MOD) 74.21 % - LV EDV BP 125.58 ml - LV ESV BP 39.58 ml - BP EF (MOD) 68.48 % - Diastolic/Systolic Function Name Value Normal Range MV E-wave Vmax 1 m/sec - MV deceleration time 207.6 msec - MV A-wave Vmax 0.93 m/sec - MV E:A ratio 1.08 ratio - Aortic Valve Name Value Normal Range AV Vmax 2.29 m/sec - AV VTI 40.33 cm - AV peak gradient 20.91 mmHg - AV mean gradient 10.71 mmHg - LVOT diameter 2.19 cm - LVOT Vmax 1.87 m/sec - LVOT VTI 34.2 cm - LVOT peak gradient 14.05 mmHg - LVOT mean gradient 7.22 mmHg - SV LVOT 129.19 ml - MATEO (continuity Vmax) 3.1 cm2 - MATEO (continuity VTI) 3.2 cm2 - Ascending Ao 2.86 cm - Tricuspid Valve Name Value Normal Range TV E-wave Vmax 0.56 m/sec - TR Vmax 2.85 m/sec - TR peak gradient 32.6 mmHg - RAP 3 mmHg - RVSP 35 mmHg - Pulmonic Valve/Qp:Qs Name Value Normal Range PV Vmax 1.49 m/sec - PV peak gradient 8.93 mmHg - RVOT Vmax 0.89 m/sec - RVOT VTI 20.22 cm - RVOT peak gradient 3.19 mmHg - PV acceleration time 110.37 msec - Gonzalez/IV: Voiding Method Urinal IV Catheter Type [Left INT / Saline Lock Antecubital] Active Medications - Current Medications Current Medications: Generic Name Dose Route Start Last Admin Trade Name Freq PRN Reason Stop Dose Admin Acetaminophen 650 mg 08/27/20 12:19 Tylenol PO Q4H PRN Pain MILD(1-3)/Fever >100.5/CAMPBELL Albuterol 2.5 mg 08/27/20 12:19 Proventil IH Q4HRT PRN Shortness Of Breath Albuterol/Ipratropium 1 ampul 08/29/20 09:00 08/31/20 08:02 Duoneb *Not For Prn Use* IH Not Given Q6HRT RADHA Amlodipine Besylate 10 mg 08/29/20 10:00 08/30/20 10:22 Amlodipine PO 10 mg QDAY RADHA Administration Arformoterol Tartrate 15 mcg 08/28/20 08:00 08/31/20 08:02 Osbaldo Reynolds IH Not Given Q12HRT RADHA Azithromycin 500 mg 08/28/20 20:00 08/30/20 10:21 Zithromax PO 09/01/20 10:01 500 mg QDAY RADHA Administration Budesonide 0.5 mg 08/28/20 08:00 08/31/20 08:02 Pulmicort IH Not Given Q12HRT [facility] Enoxaparin Sodium 40 mg 08/29/20 22:00 08/31/20 00:29 Enoxaparin SUB-Q 40 mg QDAY@2200 [facility] Administration Protocol Famotidine 20 mg 08/30/20 10:00 08/30/20 10:21 Pepcid PO 20 mg QDAY RADHA Administration Furosemide 20 mg 08/27/20 18:00 08/31/20 06:53 Lasix IV 20 mg BID@0600,1800 [facility] Administration Lisinopril 20 mg 08/29/20 10:00 08/30/20 10:17 Zestril PO 20 mg QDAY [facility] Administration Methylprednisolone Sodium Succinate 40 mg 08/28/20 22:00 08/31/20 00:35 Solu-Medrol IV 40 mg Q12HR RADHA Administration Miscellaneous Medication 1 drop 08/28/20 07:15 08/30/20 04:38 Polymyxin B Sulf/Trimethoprim [Polytrim Eye Drops] OP Not Given Q3H [facility] Montelukast Sodium 10 mg 08/28/20 22:00 08/31/20 00:33 Singulair PO Not Given QHS [facility] Ondansetron HCl 4 mg 08/27/20 12:19 Zofran IV Q8H PRN Nausea And Vomiting Sodium Chloride 10 ml 08/27/20 22:00 08/31/20 00:32 Sodium Chloride Flush Syringe 10 Ml IV 10 ml BID RADHA Administration Sodium Chloride 10 ml 08/27/20 12:19 08/30/20 06:42 Sodium Chloride Flush Syringe 10 Ml IV 10 ml PRN PRN Administration LINE FLUSH
[2020-08-31] MEDS ORDERED: ARFORMOTEROL 15 MCG/2 ML NEBU IH ONE ×2 (08:39)
--- NOTE | 2020-08-31 10:01 | Progress Note ---
Assessment and Plan Elevated troponin, nonspecific 04/2020 LHC at [facility]: no significant CAD, LVEF 60%. Abnormal ECG unchanged from previous Acute hypoxic respiratory failure COPD on home O2 Hypertension Conservative cardiac management. Subjective Date of service: 08/31/20 Principal diagnosis: AE-COPD; AC on Ch Hypercapnic & hypoxemic resp failure; SALLY/OHS Interval history: Patient resting in bed, no distress noted. Objective Vital Signs Pulse Pulse Resp Resp BP Pulse Ox 08/31/20 09:00 154/65 93 08/31/20 08:56 89 18 08/31/20 07:00 139/66 99 08/31/20 05:00 141/72 94 08/31/20 04:00 141/72 65 L 08/31/20 03:15 78 16 08/31/20 03:00 154/69 68 L 08/31/20 02:00 154/69 95 08/31/20 01:58 72 22 93 08/31/20 01:00 164/78 88 08/31/20 00:21 210/87 83 L 08/30/20 23:00 210/87 08/30/20 22:34 82 16 08/30/20 22:00 210/87 94 08/30/20 21:00 136/89 98 08/30/20 20:36 136/89 100 08/30/20 20:00 136/89 100 08/30/20 19:00 120/91 99 08/30/20 18:00 120/91 94 08/30/20 17:00 123/76 98 08/30/20 16:00 123/76 98 08/30/20 15:00 113/52 98 08/30/20 14:00 82 26 H 113/52 87 08/30/20 13:00 74 12 133/64 90 08/30/20 12:00 79 21 133/64 88 08/30/20 11:00 74 15 147/73 86 08/30/20 10:22 85 147/73 08/30/20 10:17 86 147/73 08/30/20 10:00 86 12 147/73 94 - Physical Examination General: No Apparent Distress HEENT: Positive: PERRL Neck: Positive: neck supple Cardiac: Positive: Reg Rate and Rhythm Lungs: Positive: Decreased Breath Sounds Neuro: Positive: Grossly Intact Extremities: Absent: edema - Labs and Meds CBC 08/31/20 Range/Units 06:01 WBC 8.0 (4.5-11.0) K/mm3 RBC 4.45 (3.65-5.03) M/mm3 Hgb 14.2 (11.8-15.2) gm/dl Hct 44.3 (35.5-45.6) % Plt Count 213 (140-440) K/mm3 Comprehensive Metabolic Panel 08/31/20 Range/Units 06:01 Sodium 139 (137-145) mmol/L Potassium 4.6 (3.6-5.0) mmol/L Chloride 92.4 L (98-107) mmol/L Carbon Dioxide 39 H D (22-30) mmol/L BUN 33 H (9-20) mg/dL Creatinine 1.2 (0.8-1.3) mg/dL Glucose 135 H (75-100) mg/dL Calcium 9.3 (8.4-10.2) mg/dL - Allied health notes Allied health notes reviewed: nursing
[2020-08-31] MEDS: FAMOTIDINE 20 MG TAB PO SCH (10:22)
[2020-08-31] MEDS: LISINOPRIL 20 MG TAB PO SCH (10:22)
[2020-08-31] MEDS: AZITHROMYCIN 250 MG TAB PO SCH (10:23)
[2020-08-31] MEDS: amLODIPine 10 MG TAB PO SCH (10:23)
--- NOTE | 2020-08-31 11:52 | Progress Note ---
Assessment and Plan Patient awake. Resting on 3 litres O2 via nasal canula. o2 saturation 93%. Says breathing better. BIPAP stansby in the room Patient afebrile.. No leukocytosis. Chest xray done 08/27/20 reported Interstitial edema has cleared. Parenchymal density in the left mid to lower lung is unchanged from previous exams and thought to represent scarring. No pleural fluid. - Patient Problems (1) Acute exacerbation of chronic obstructive pulmonary disease (COPD) Current Visit: Yes Status: Acute Plan to address problem: O2 3 litres via nasal canula. BIPAP 20/8, rate 20, FIO2 50%. Albuterol/atrovent aerosol treatments q 6 hours. Continue I/V solumedrol. Continue S/C Lovenox Continue famotidine. Continue Zithromax. (2) Acute on chronic respiratory failure with hypoxia and hypercapnia Current Visit: Yes Status: Acute Plan to address problem: O2 3 litres via nasal canula. BIPAP 20/8, rate 20, FIO2 50%. Albuterol/atrovent aerosol treatments q 6 hours. Continue I/V solumedrol. Continue S/C Lovenox Continue famotidine. Continue Zithromax. (3) Hypertension Current Visit: Yes Status: Acute Plan to address problem: Management as per primary care. (4) NSTEMI (non-ST elevated myocardial infarction) Current Visit: Yes Status: Acute Plan to address problem: Management as per cardiology. (5) Obesity hypoventilation syndrome Current Visit: Yes Status: Acute Plan to address problem: BIPAP 20/8, rate 20, FIO2 50%. Recommend sleep study as out patient. (6) CHF (congestive heart failure) Current Visit: No Status: Acute Plan to address problem: Management as per cardiology. Subjective Date of service: 08/31/20 Principal diagnosis: AE-COPD; AC on Ch Hypercapnic & hypoxemic resp failure; SALLY/OHS Interval history: Patient awake. Resting on 3 litres O2 via nasal canula. o2 saturation 93%. Says breathing better. BIPAP stansby in the room Patient afebrile.. No leukocytosis. Chest xray done 08/27/20 reported Interstitial edema has cleared. Parenchymal density in the left mid to lower lung is unchanged from previous exams and thought to represent scarring. No pleural fluid. Objective Vital Signs - 12hr 08/31/20 08/31/20 08/31/20 00:21 01:00 01:58 Pulse Rate 72 Pulse Rate [ Anterior Bilateral Throughout] Respiratory 22 Rate Respiratory Rate [Anterior Bilateral Throughout] Blood Pressure 210/87 164/78 O2 Sat by Pulse 83 L 88 93 Oximetry 08/31/20 08/31/20 08/31/20 02:00 03:00 03:15 Pulse Rate Pulse Rate [ 78 Anterior Bilateral Throughout] Respiratory Rate Respiratory 16 Rate [Anterior Bilateral Throughout] Blood Pressure 154/69 154/69 O2 Sat by Pulse 95 68 L Oximetry 08/31/20 08/31/20 08/31/20 04:00 05:00 07:00 Pulse Rate Pulse Rate [ Anterior Bilateral Throughout] Respiratory Rate Respiratory Rate [Anterior Bilateral Throughout] Blood Pressure 141/72 141/72 139/66 O2 Sat by Pulse 65 L 94 99 Oximetry 08/31/20 08/31/20 08/31/20 08:56 09:00 10:22 Pulse Rate 89 Pulse Rate [ 89 Anterior Bilateral Throughout] Respiratory Rate Respiratory 18 Rate [Anterior Bilateral Throughout] Blood Pressure 154/65 154/65 O2 Sat by Pulse 93 Oximetry 08/31/20 10:23 Pulse Rate 89 Pulse Rate [ Anterior Bilateral Throughout] Respiratory Rate Respiratory Rate [Anterior Bilateral Throughout] Blood Pressure 154/65 O2 Sat by Pulse Oximetry Constitutional: no acute distress, alert, other (elderly obese male with mildly increased respiratory effort at rest) Eyes: non-icteric ENT: oropharynx moist Neck: supple, no lymphadenopathy, no JVD Effort: mildly labored Ascultation: Bilateral: diminished breath sounds, other (prolonged expiratory phase) Percussion: Bilateral: not dull Cardiovascular: regular rate and rhythm Gastrointestinal: normoactive bowel sounds, soft, non-tender, non-distended (protuberabt) Integumentary: normal Extremities: no cyanosis, no edema, pulses normal, no ischemia or petechiae Neurologic: normal mental status, non-focal exam, pupils equal and round, CN II- XII normal Psychiatric: mood appropriate, affect normal CBC and BMP: 08/31/20 06:01 08/31/20 06:01 ABG, PT/INR, D-dimer: ABG ABG pH 7.435 pH Units (7.350-7.450) 08/29/20 20:35 POC ABG pCO2 90.8 mmHg (32.0-48.0) H 08/29/20 15:41 ABG pCO2 65.7 mm Hg 08/29/20 20:35 POC ABG pO2 138.3 mmHg (83-108) H 08/29/20 15:41 ABG pO2 74.7 mm Hg (80.0-90.0) L 08/29/20 20:35 POC ABG HCO3 42.4 08/29/20 15:41 ABG O2 Saturation 97.0 % (95.0-99.0) 08/29/20 20:35 PT/INR, D-dimer PT 13.0 Sec. (12.2-14.9) 08/27/20 09:53 INR 0.96 (0.87-1.13) 08/27/20 09:53 Abnormal lab findings: Abnormal Labs 08/27/20 08/27/20 08/27/20 09:53 09:53 10:30 MCV 103 H MCHC 31 L RDW 18.0 H Lymph % (Auto) 8.2 L Bryan % (Auto) 9.3 H Lymph # (Auto) 0.5 L Seg Neutrophils % 81.3 H ABG pH 7.314 L POC ABG pCO2 POC ABG pO2 ABG pO2 64.1 L ABG HCO3 42.9 H ABG O2 Saturation 93.4 L ABG Base Excess 13.1 H ABG Hemoglobin 12.8 L ABG Potassium ABG Chloride ABG Glucose Oxyhemoglobin 90.5 L Potassium Chloride 94.9 L Carbon Dioxide 48 H* D BUN 32 H Glucose 137 H POC Glucose CK-MB (CK-2) CK-MB (CK-2) Rel Index Troponin T 0.090 H NT-Pro-B Natriuret Pep 1916 H Albumin Cholesterol 210 H LDL Cholesterol Direct 138 H Arterial Blood Glucose 08/28/20 08/28/20 08/28/20 04:40 04:40 12:19 MCV 102 H MCHC 31 L RDW 18.2 H Lymph % (Auto) 10.1 L Bryan % (Auto) 11.4 H Lymph # (Auto) 0.7 L Seg Neutrophils % 78.3 H ABG pH POC ABG pCO2 POC ABG pO2 ABG pO2 ABG HCO3 ABG O2 Saturation ABG Base Excess ABG Hemoglobin ABG Potassium ABG Chloride ABG Glucose Oxyhemoglobin Potassium 5.6 H Chloride 96.0 L Carbon Dioxide 43 H* BUN 29 H Glucose 103 H POC Glucose CK-MB (CK-2) 4.8 H CK-MB (CK-2) Rel Index 6.8 H Troponin T 0.099 H NT-Pro-B Natriuret Pep Albumin 3.5 L Cholesterol LDL Cholesterol Direct Arterial Blood Glucose 08/28/20 08/29/20 08/29/20 17:23 09:18 11:24 MCV MCHC RDW Lymph % (Auto) Bryan % (Auto) Lymph # (Auto) Seg Neutrophils % ABG pH POC ABG pCO2 POC ABG pO2 ABG pO2 ABG HCO3 ABG O2 Saturation ABG Base Excess ABG Hemoglobin ABG Potassium ABG Chloride ABG Glucose Oxyhemoglobin Potassium 5.2 H Chloride 91.5 L Carbon Dioxide 46 H* BUN 24 H Glucose 119 H POC Glucose 143 H CK-MB (CK-2) 5.2 H CK-MB (CK-2) Rel Index 7.0 H Troponin T 0.108 H* NT-Pro-B Natriuret Pep Albumin Cholesterol LDL Cholesterol Direct Arterial Blood Glucose 08/29/20 08/29/20 08/31/20 15:41 20:35 06:01 MCV 100 H MCHC RDW 17.8 H Lymph % (Auto) Bryan % (Auto) Lymph # (Auto) Seg Neutrophils % ABG pH 7.287 L POC ABG pCO2 90.8 H POC ABG pO2 138.3 H ABG pO2 74.7 L ABG HCO3 43.1 H ABG O2 Saturation ABG Base Excess 15.5 H ABG Hemoglobin ABG Potassium 4.8 H ABG Chloride 92.0 L ABG Glucose 135 H Oxyhemoglobin 94.6 L Potassium Chloride Carbon Dioxide BUN Glucose POC Glucose CK-MB (CK-2) CK-MB (CK-2) Rel Index Troponin T NT-Pro-B Natriuret Pep Albumin Cholesterol LDL Cholesterol Direct Arterial Blood Glucose 135 H 08/31/20 06:01 MCV MCHC RDW Lymph % (Auto) Bryan % (Auto) Lymph # (Auto) Seg Neutrophils % ABG pH POC ABG pCO2 POC ABG pO2 ABG pO2 ABG HCO3 ABG O2 Saturation ABG Base Excess ABG Hemoglobin ABG Potassium ABG Chloride ABG Glucose Oxyhemoglobin Potassium Chloride 92.4 L Carbon Dioxide 39 H D BUN 33 H Glucose 135 H POC Glucose CK-MB (CK-2) CK-MB (CK-2) Rel Index Troponin T NT-Pro-B Natriuret Pep Albumin Cholesterol LDL Cholesterol Direct Arterial Blood Glucose Allied health notes reviewed: nursing
[2020-09-01] MEDS: IPRATROPIUM/ALBUTEROL SULFATE 3 ML AMPUL.NEB IH SCH ×3 (03:01→15:29)
[2020-09-01] MEDS: FUROSEMIDE 20 MG/2 ML INJ IV SCH (05:16)
[2020-09-01] MEDS: FAMOTIDINE 20 MG TAB PO SCH (09:45)
[2020-09-01] MEDS: methylPREDNISolone Sod Succinate 40 MG/1 ML INJ IV SCH (09:45)
[2020-09-01] MEDS: amLODIPine 10 MG TAB PO SCH (09:46)
[2020-09-01] MEDS: AZITHROMYCIN 250 MG TAB PO SCH (09:46)
[2020-09-01] MEDS: LISINOPRIL 20 MG TAB PO SCH (09:47)
[2020-09-01] MEDS: ARFORMOTEROL 15 MCG/2 ML NEBU IH SCH (09:50)
[2020-09-01] MEDS: BUDESONIDE 0.5 MG/2 ML NEBU IH SCH (09:50)
--- NOTE | 2020-09-01 10:56 | Progress Note ---
Assessment and Plan Elevated troponin, nonspecific 04/2020 [facility] at [facility]: no significant CAD, LVEF 60%. Abnormal ECG unchanged from previous Acute hypoxic respiratory failure COPD exacerbation on home O2 Hypertension Conservative cardiac management. Will follow intermittently. Subjective Date of service: 09/01/20 Principal diagnosis: AE-COPD; AC on Ch Hypercapnic & hypoxemic resp failure; SALLY/OHS Interval history: Patient resting in bed, no distress noted. No cardiac complaints. Objective Vital Signs Temp Pulse Pulse Resp Resp BP BP 09/01/20 09:47 73 147/78 09/01/20 09:46 73 147/78 09/01/20 09:30 97.8 F 82 16 147/78 09/01/20 04:09 98.0 F 70 18 171/78 08/31/20 23:54 98.0 F 67 18 163/84 08/31/20 23:00 63 08/31/20 20:43 08/31/20 19:17 98.4 F 84 18 148/71 08/31/20 17:00 76 08/31/20 15:44 97.5 F L 75 18 143/70 08/31/20 13:40 86 18 08/31/20 12:00 83 Pulse Ox 09/01/20 09:47 09/01/20 09:46 09/01/20 09:30 96 09/01/20 04:09 94 08/31/20 23:54 99 08/31/20 23:00 08/31/20 20:43 96 08/31/20 19:17 95 08/31/20 17:00 08/31/20 15:44 92 08/31/20 13:40 08/31/20 12:00 - Physical Examination General: No Apparent Distress HEENT: Positive: PERRL Neck: Positive: neck supple Cardiac: Positive: Reg Rate and Rhythm Lungs: Positive: Decreased Breath Sounds Neuro: Positive: Grossly Intact Abdomen: Positive: Soft Extremities: Absent: edema - Allied health notes Allied health notes reviewed: nursing
[2020-09-01 12:25] VITALS: BP 131/69
--- NOTE | 2020-09-01 14:54 | Discharge Summary ---
Providers - Providers Date of Admission: 08/27/20 12:19 Date of discharge: 09/01/20 Attending physician: JOHN LOPEZ 08/27/20 10:51 Consult to Cardiology [CONS] Routine Consulting Provider: FRANC JACKSON Reason For Exam: elevated trop 08/28/20 07:06 Consult to Physician [CONS] Routine Comment: Consulting Provider: YESIKA MCCONNELL Physician Instructions: Reason For Exam: copd exacerbation Primary care physician: HAIR OR BEAUTY SALON MANAGER Hospitalization Reason for admission: Worsening shortness of breath/acute exacerbation of COPD Condition: Stable Pertinent studies: CT head; no acute abnormality Chest x-ray; no acute abnormality Echocardiogram; EF 60 to 65% Hospital course: 64-year-old male with significant past medical history of COPD on home oxygen chronic diastolic congestive heart failure obesity was admitted through emergency room with worsening shortness of breath and dizziness . Initial work-up is consistent with acute exacerbation of COPD, patient was managed with oxygen titrate O2 sats to more than 90%, nebulizers IV steroids IV antibiotics inhalation steroids and cardiac medications Patient was evaluated by boatbuilder apprentice wood, echocardiogram showed normal left ventricular function of 60 to 65% Medications optimized, patient was also on oxygen with acute exacerbation of COPD Managed appropriately with nebulizers tapering dose of IV steroids completed IV antibiotics Symptoms significantly improved, Today patient is comfortable no new complaints vital signs stable physical examination is unremarkable Cleared by cardiology and pulmonary for discharge and follow-up in their offices for schedule. Prior to discharge patient is ambulatory and resting room air O2 sats was checked And nasal cannula oxygen was adjusted as needed Patient is back to baseline status, Stable at discharge And follow-up with primary care physician, pulmonary as well as cardiology upon discharge Discharge diagnosis: --Acute exacerbation of COPD ; Oxygen titrate O2 sats to more than 90% Evaluate for home oxygen Nebulizers, IV steroids, IV antibiotics, inhalation steroids --Chronic metabolic alkalosis; Secondary to obesity, closely monitor Oxygen titrate O2 sats more than 90% Pulmonology is following --History of chronic diastolic congestive heart failure; Continue current cardiac medications, fluid restriction Input output monitoring, cardiology following --Non-ST elevation [place]/probably type II Patient had negative cardiac cath in April 2020 at [facility] recommend current medical management --Obesity; BMI 32.1 Patient needs weight reduction when medically stable --Possible obstructive sleep apnea; CPAP/BiPAP at night Patient needs outpatient sleep study to rule out SALLY --DVT prophylaxis; Lovenox Patient stable at discharge Disposition: DC-01 TO HOME OR SELFCARE Time spent for discharge: 35 min Core Measure Documentation - Palliative Care Palliative Care/ Comfort Measures: Not Applicable - Core Measures Any of the following diagnoses?: none Exam - Constitutional Vitals: Temp Pulse Resp BP Pulse Ox 97.8 F 79 19 131/69 96 09/01/20 12:24 09/01/20 12:24 09/01/20 12:24 09/01/20 12:24 09/01/20 12:24 General appearance: Present: no acute distress, well-nourished - EENT Eyes: Present: PERRL, EOM intact ENT: hearing intact, clear oral mucosa - Neck Neck: Present: supple, normal ROM - Respiratory Respiratory effort: normal Respiratory: bilateral: diminished, negative: rales, rhonchi, wheezing - Cardiovascular Rhythm: regular Heart Sounds: Present: S1 & S2 - Extremities Extremities: no ischemia, No edema - Abdominal General gastrointestinal: Present: soft, non-tender, non-distended, normal bowel sounds Plan Diet: other (Cardiac diet) Additional Instructions: Continue home oxygen as before. If you have worsening symptoms contact MD or go to emergency room. Need to follow with private pulmonary for outpatient sleep study, to evaluate for obstructive sleep apnea, and the need for BiPAP machine Follow up with: PRIMARY CARE, [Primary Care Provider] - 3-5 Days YESIKA MCCONNELL MD [Staff Physician] - 7 Days REGAN MONTELONGO MD [Staff Physician] - 7 Days Prescriptions: RX: Famotidine [Pepcid] 20 mg PO QDAY #30 tablet Prednisone [predniSONE 10 mg (6-Day Pack, 21 Tabs)] 10 mg PO .TAPER #1 tab.ds.pk RX: Montelukast [Singulair] 10 mg PO QHS #30 tablet
--- NOTE | 2020-09-01 15:40 | Progress Note ---
Assessment and Plan Patient awake. Resting on 3 litres O2 via nasal canula. o2 saturation 93%. Says breathing better. BIPAP stansby in the room Patient afebrile.. No leukocytosis. Chest xray done 08/27/20 reported Interstitial edema has cleared. Parenchymal density in the left mid to lower lung is unchanged from previous exams and thought to represent scarring. No pleural fluid. - Patient Problems (1) Acute exacerbation of chronic obstructive pulmonary disease (COPD) Current Visit: Yes Status: Acute Plan to address problem: O2 3 litres via nasal canula. BIPAP 20/8, rate 20, FIO2 50%. Albuterol/atrovent aerosol treatments q 6 hours. Continue I/V solumedrol. Continue S/C Lovenox Continue famotidine. Continue Zithromax. (2) Acute on chronic respiratory failure with hypoxia and hypercapnia Current Visit: Yes Status: Acute Plan to address problem: O2 3 litres via nasal canula. BIPAP 20/8, rate 20, FIO2 50%. Albuterol/atrovent aerosol treatments q 6 hours. Continue I/V solumedrol. Continue S/C Lovenox Continue famotidine. Continue Zithromax. (3) Hypertension Current Visit: Yes Status: Acute Plan to address problem: Management as per primary care. (4) NSTEMI (non-ST elevated myocardial infarction) Current Visit: Yes Status: Acute Plan to address problem: Management as per cardiology. (5) Obesity hypoventilation syndrome Current Visit: Yes Status: Acute Plan to address problem: BIPAP 20/8, rate 20, FIO2 50%. Recommend sleep study as out patient. (6) CHF (congestive heart failure) Current Visit: No Status: Acute Plan to address problem: Management as per cardiology. Subjective Date of service: 09/01/20 Principal diagnosis: AE-COPD; AC on Ch Hypercapnic & hypoxemic resp failure; SALLY/OHS Interval history: Patient awake. Resting on 3 litres O2 via nasal canula. o2 saturation 93%. Says breathing better. BIPAP stansby in the room Patient afebrile.. No leukocytosis. Chest xray done 08/27/20 reported Interstitial edema has cleared. Parenchymal density in the left mid to lower lung is unchanged from previous exams and thought to represent scarring. No pleural fluid. Objective Vital Signs - 12hr 09/01/20 09/01/20 09/01/20 04:09 09:00 09:30 Temperature 98.0 F 97.8 F Pulse Rate 70 62 82 Pulse Rate [ Apical] Pulse Rate [ Left Radial] Pulse Rate [ Right Radial] Respiratory 18 16 Rate Blood Pressure 171/78 Blood Pressure 147/78 [Right] O2 Sat by Pulse 94 96 Oximetry 09/01/20 09/01/20 09/01/20 09:46 09:47 12:00 Temperature Pulse Rate 73 73 Pulse Rate [ 63 Apical] Pulse Rate [ 63 Left Radial] Pulse Rate [ 63 Right Radial] Respiratory 20 Rate Blood Pressure 147/78 147/78 Blood Pressure [Right] O2 Sat by Pulse 96 Oximetry 09/01/20 12:24 Temperature 97.8 F Pulse Rate 79 Pulse Rate [ Apical] Pulse Rate [ Left Radial] Pulse Rate [ Right Radial] Respiratory 19 Rate Blood Pressure Blood Pressure 131/69 [Right] O2 Sat by Pulse 96 Oximetry Constitutional: no acute distress, alert, other (elderly obese male with mildly increased respiratory effort at rest) Eyes: non-icteric ENT: oropharynx moist Neck: supple, no lymphadenopathy, no JVD Effort: mildly labored Ascultation: Bilateral: clear, diminished breath sounds, other (prolonged expiratory phase) Percussion: Bilateral: not dull Cardiovascular: regular rate and rhythm Gastrointestinal: normoactive bowel sounds, soft, non-tender, non-distended (protuberabt) Integumentary: normal Extremities: no cyanosis, no edema, pulses normal, no ischemia or petechiae Neurologic: normal mental status, non-focal exam, pupils equal and round, CN II- XII normal Psychiatric: mood appropriate, affect normal CBC and BMP: 08/31/20 06:01 08/31/20 06:01 ABG, PT/INR, D-dimer: ABG ABG pH 7.435 pH Units (7.350-7.450) 08/29/20 20:35 POC ABG pCO2 90.8 mmHg (32.0-48.0) H 08/29/20 15:41 ABG pCO2 65.7 mm Hg 08/29/20 20:35 POC ABG pO2 138.3 mmHg (83-108) H 08/29/20 15:41 ABG pO2 74.7 mm Hg (80.0-90.0) L 08/29/20 20:35 POC ABG HCO3 42.4 08/29/20 15:41 ABG O2 Saturation 97.0 % (95.0-99.0) 08/29/20 20:35 PT/INR, D-dimer PT 13.0 Sec. (12.2-14.9) 08/27/20 09:53 INR 0.96 (0.87-1.13) 08/27/20 09:53 Abnormal lab findings: Abnormal Labs 08/27/20 08/27/20 08/27/20 09:53 09:53 10:30 MCV 103 H MCHC 31 L RDW 18.0 H Lymph % (Auto) 8.2 L Isabella % (Auto) 9.3 H Lymph # (Auto) 0.5 L Seg Neutrophils % 81.3 H ABG pH 7.314 L POC ABG pCO2 POC ABG pO2 ABG pO2 64.1 L ABG HCO3 42.9 H ABG O2 Saturation 93.4 L ABG Base Excess 13.1 H ABG Hemoglobin 12.8 L ABG Potassium ABG Chloride ABG Glucose Oxyhemoglobin 90.5 L Potassium Chloride 94.9 L Carbon Dioxide 48 H* D BUN 32 H Glucose 137 H POC Glucose CK-MB (CK-2) CK-MB (CK-2) Rel Index Troponin T 0.090 H NT-Pro-B Natriuret Pep 1916 H Albumin Cholesterol 210 H LDL Cholesterol Direct 138 H Arterial Blood Glucose 08/28/20 08/28/20 08/28/20 04:40 04:40 12:19 MCV 102 H MCHC 31 L RDW 18.2 H Lymph % (Auto) 10.1 L Isabella % (Auto) 11.4 H Lymph # (Auto) 0.7 L Seg Neutrophils % 78.3 H ABG pH POC ABG pCO2 POC ABG pO2 ABG pO2 ABG HCO3 ABG O2 Saturation ABG Base Excess ABG Hemoglobin ABG Potassium ABG Chloride ABG Glucose Oxyhemoglobin Potassium 5.6 H Chloride 96.0 L Carbon Dioxide 43 H* BUN 29 H Glucose 103 H POC Glucose CK-MB (CK-2) 4.8 H CK-MB (CK-2) Rel Index 6.8 H Troponin T 0.099 H NT-Pro-B Natriuret Pep Albumin 3.5 L Cholesterol LDL Cholesterol Direct Arterial Blood Glucose 08/28/20 08/29/20 08/29/20 17:23 09:18 11:24 MCV MCHC RDW Lymph % (Auto) Isabella % (Auto) Lymph # (Auto) Seg Neutrophils % ABG pH POC ABG pCO2 POC ABG pO2 ABG pO2 ABG HCO3 ABG O2 Saturation ABG Base Excess ABG Hemoglobin ABG Potassium ABG Chloride ABG Glucose Oxyhemoglobin Potassium 5.2 H Chloride 91.5 L Carbon Dioxide 46 H* BUN 24 H Glucose 119 H POC Glucose 143 H CK-MB (CK-2) 5.2 H CK-MB (CK-2) Rel Index 7.0 H Troponin T 0.108 H* NT-Pro-B Natriuret Pep Albumin Cholesterol LDL Cholesterol Direct Arterial Blood Glucose 08/29/20 08/29/20 08/31/20 15:41 20:35 06:01 MCV 100 H MCHC RDW 17.8 H Lymph % (Auto) Isabella % (Auto) Lymph # (Auto) Seg Neutrophils % ABG pH 7.287 L POC ABG pCO2 90.8 H POC ABG pO2 138.3 H ABG pO2 74.7 L ABG HCO3 43.1 H ABG O2 Saturation ABG Base Excess 15.5 H ABG Hemoglobin ABG Potassium 4.8 H ABG Chloride 92.0 L ABG Glucose 135 H Oxyhemoglobin 94.6 L Potassium Chloride Carbon Dioxide BUN Glucose POC Glucose CK-MB (CK-2) CK-MB (CK-2) Rel Index Troponin T NT-Pro-B Natriuret Pep Albumin Cholesterol LDL Cholesterol Direct Arterial Blood Glucose 135 H 08/31/20 06:01 MCV MCHC RDW Lymph % (Auto) Isabella % (Auto) Lymph # (Auto) Seg Neutrophils % ABG pH POC ABG pCO2 POC ABG pO2 ABG pO2 ABG HCO3 ABG O2 Saturation ABG Base Excess ABG Hemoglobin ABG Potassium ABG Chloride ABG Glucose Oxyhemoglobin Potassium Chloride 92.4 L Carbon Dioxide 39 H D BUN 33 H Glucose 135 H POC Glucose CK-MB (CK-2) CK-MB (CK-2) Rel Index Troponin T NT-Pro-B Natriuret Pep Albumin Cholesterol LDL Cholesterol Direct Arterial Blood Glucose Allied health notes reviewed: nursing
== END 2020-09-01 16:13 | disposition home health service (06) | DRG 280 ==
LOC: ED 08:38 → 4A 12:19
PROVIDERS: ADMIT Internal Medicine; ATTEND Internal Medicine
PROC: 4A033R1 Measurement of Arterial Saturation, Peripheral, Percutaneous Approach (ICD-10-PCS; principal; 2020-08-27)
PROC: 5A09357 Assistance with Respiratory Ventilation, Less than 24 Consecutive Hours, Continuous Positive Airway Pressure (ICD-10-PCS; 2020-08-29)
DX: I11.0 Hypertensive heart disease with heart failure (principal); J96.21 Acute and chronic respiratory failure with hypoxia; I21.A1 Myocardial infarction type 2; J96.22 Acute and chronic respiratory failure with hypercapnia; I50.43 Acute on chronic combined systolic (congestive) and diastolic (congestive) heart failure; J44.1 Chronic obstructive pulmonary disease with (acute) exacerbation; E87.5 Hyperkalemia; Z20.828 Contact with and (suspected) exposure to other viral communicable diseases; Z99.81 Dependence on supplemental oxygen; E66.2 Morbid (severe) obesity with alveolar hypoventilation; Z68.32 Body mass index [BMI] 32.0-32.9, adult; Z82.49 Family history of ischemic heart disease and other diseases of the circulatory system; E87.3 Alkalosis; N17.9 Acute kidney failure, unspecified
CPT/HCPCS: 36415; 36600; 70450; 71045; 80048; 80053; 80061; 82550; 82553; 82803; 82805; 82962; 83880; 84484; 85025; 85027; 85610; 93005; 93306; 94640; 94644; 94760; 96374; 96375; G0378; J1650; J1940; J2920; J2930; U0003

== ENCOUNTER 2022-06-22 19:16 | Emergency (ER) | payer MEDICAID ==
--- NOTE | 2022-06-22 20:04 | XRay Report ---
CHEST 2 VIEWS INDICATION / CLINICAL INFORMATION: COUGH. COMPARISON: 08/27/20. FINDINGS: SUPPORT DEVICES: None. HEART / MEDIASTINUM: There is moderate cardiomegaly. Mild prominence of the central pulmonary vessels is chronic and unchanged. LUNGS / PLEURA: The lungs are hyperinflated. There are mild chronic parenchymal opacities in both mid lung zones, left greater than right. No new pulmonary or pleural abnormality. No pneumothorax. ADDITIONAL FINDINGS: No significant additional findings. IMPRESSION: COPD and cardiomegaly without acute abnormality. Signer Name: Jurgen Elias MD Signed: 06/22/2022 7:59 PM Workstation Name: [id number]
[2022-06-23] MEDS ORDERED: ALBUTEROL 2.5 MG/3 ML NEBU IH ONE (02:17)
[2022-06-23] MEDS ORDERED: IPRATROPIUM 0.02% NEBU 2.5 ML IH ONE (02:17)
[2022-06-23] MEDS ORDERED: methylPREDNISolone Sod Succinate 125 MG/2 ML INJ IV ONE (02:17)
--- NOTE | 2022-06-23 02:56 | XRay Report ---
CHEST 1 VIEW INDICATION / CLINICAL INFORMATION: Dyspnea STUDY TIME: 237 COMPARISON: 06/22/2022 FINDINGS: SUPPORT DEVICES: None HEART / MEDIASTINUM: No significant abnormality. LUNGS / PLEURA: Mild congestion continues. Atelectatic changes in the left midlung are again seen. Mi ld atelectasis is seen on the right and increasing density is noted in the right base. No pneumothora x. ADDITIONAL FINDINGS: No significant additional findings. Signer Name: Naveen Muñoz MD Signed: 06/23/2022 2:52 AM Workstation Name: [id number]
[2022-06-23 03:23] LABS: Basophils # (Auto) 0.1 K/mm3 (0.0-0.1); Basophils % (Auto) 0.6 % (0.0-1.8); Eosinophils % (Auto) 0.6 % (0.0-4.3); Hematocrit 40.2 % (35.5-45.6); Hemoglobin 12.9 gm/dl (11.8-15.2); Lymphocytes # (Auto) 0.8 K/mm3 (1.2-5.4); Lymphocytes % (Auto) 9.5 % (13.4-35.0); Mean Corpuscular HGB Conc 32 % (32-34); Mean Corpuscular Volume 97 fl (84-94); Monocytes # (Auto) 0.8 K/mm3 (0.0-0.8); Monocytes % (Auto) 8.8 % (0.0-7.3); Platelet Count 161 K/mm3 (140-440); Red Blood Count 4.14 M/mm3 (3.65-5.03); Red Cell Distribution Width 15.1 % (13.2-15.2)
[2022-06-23] MEDS ORDERED: IPRATROPIUM/ALBUTEROL SULFATE 3 ML AMPUL.NEB IH ONE ×2 (03:30→03:33)
[2022-06-23 03:35] LABS: Creatine Kinase MB 5.9 ng/mL (0.0-4.0)
[2022-06-23 03:36] LABS: Albumin 3.9 g/dL (3.9-5); BUN/Creatinine Ratio 20; Blood Urea Nitrogen 22 mg/dL (9-20); Calcium 9.5 mg/dL (8.4-10.2); Hemolysis Index 113
[2022-06-23 03:48] LABS: Chol/HDL Ratio 3.58 %; HDL Cholesterol 53 mg/dL (40-59); LDL Cholesterol,Direct 114 mg/dL (50-130)
[2022-06-23 04:06] LABS: Alanine Aminotransferase 14 units/L (7-56)
[2022-06-23] MEDS ORDERED: hydrALAZINE 20 MG/1 ML INJ IV ONE (04:14)
[2022-06-23 04:20] VITALS: BP 150/83
--- NOTE | 2022-06-23 04:28 | Emergency Department Report ---
ED Shortness of Breath HPI - General Chief Complaint: Dyspnea/Respdistress Stated Complaint: LOW OXYGEN Time Seen by Provider: 06/23/22 02:17 Source: patient Mode of arrival: Wheelchair Limitations: No Limitations - History of Present Illness Initial Comments: SOB AND COUGH X 3 DAYS, STATES THAT HE WEARS CONTINOUS NC AT 3L DX COPD. PT C/A/O, RESP UNLAB BUT SHALLOW ON ARRIVAL, SKIN EXPECTED COLOR WDI, PT IN WC INTO TRIAGE. PLACED ON HOSPITAL O2 TANK, 93-94% NC 3L. PT REPORTS THAT HE IS CONCERNED THAT HE IS NOT CATCHING HIS BREATH WHEN WAKING UP, PT CALM AND COOPERATIVE AT TRIAGE, NO RESTLESSNESS NOTED MD Complaint: shortness of breath, cough -: days(s) Severity: moderate Pain Scale: 5 Consistency: intermittent Improves With: oxygen Known History Of: COPD, asthma Associated Symptoms: denies other symptoms - Related Data Home Oxygen Amount: 3 Liters Home Medications Medication Instructions Recorded Confirmed Last Taken Albuterol Sulfate [Proair 90 mcg IH Q6HR 08/31/20 08/31/20 Unknown Digihaler] Amlodipine Besylate/Benazepril 1 each PO QDAY 08/31/20 08/31/20 Unknown [Amlodipine-Benazepril 5-20 mg] AtorvaSTATin [Lipitor] 40 mg PO QHS 08/31/20 08/31/20 Unknown Fluticasone Propion/Salmeterol 1 each IH BID 08/31/20 08/31/20 Unknown [Fluticasone-Salmeterol 500-50] Tiotropium Franklin [Spiriva] 18 mcg IH QDAY 08/31/20 08/31/20 Unknown Previous Rx's Medication Instructions Recorded Last Taken Type Famotidine [Pepcid] 20 mg PO QDAY #30 tablet 09/01/20 Unknown Rx Montelukast [Singulair] 10 mg PO QHS #30 tablet 09/01/20 Unknown Rx Polymyxin B Sulf/Trimethoprim 1 drop OP Q3H 09/01/20 Unknown Rx [Polytrim Eye Drops] Prednisone [predniSONE 10 mg 10 mg PO .TAPER #1 tab.ds.pk 09/01/20 Unknown Rx (6-Day Pack, 21 Tabs)] Allergies Allergy/AdvReac Type Severity Reaction Status Date / Time No Known Allergies Allergy Verified 12/06/19 21:46 ED Review of Systems ROS: Stated complaint: LOW OXYGEN Other details as noted in HPI Constitutional: denies: chills, fever Eyes: denies: eye pain, eye discharge, vision change ENT: denies: ear pain, throat pain Respiratory: denies: cough, shortness of breath, wheezing Cardiovascular: denies: chest pain, palpitations Endocrine: no symptoms reported Gastrointestinal: denies: abdominal pain, nausea, diarrhea Genitourinary: denies: urgency, dysuria Musculoskeletal: denies: back pain, joint swelling, arthralgia Skin: denies: rash, lesions Neurological: denies: headache, weakness, paresthesias Psychiatric: denies: anxiety, depression Hematological/Lymphatic: denies: easy bleeding, easy bruising ED Past Medical Hx - Past Medical History Previous Medical History?: Yes Hx Hypertension: Yes Hx Congestive Heart Failure: No Hx Diabetes: No Hx Asthma: No Hx COPD: Yes Hx HIV: No - Surgical History Past Surgical History?: No - Social History Smoking Status: Unknown if ever smoked - Medications Home Medications: Home Medications Medication Instructions Recorded Confirmed Last Taken Type Albuterol Sulfate [Proair 90 mcg IH Q6HR 08/31/20 08/31/20 Unknown History Digihaler] Amlodipine Besylate/Benazepril 1 each PO QDAY 08/31/20 08/31/20 Unknown History [Amlodipine-Benazepril 5-20 mg] AtorvaSTATin [Lipitor] 40 mg PO QHS 08/31/20 08/31/20 Unknown History Fluticasone Propion/Salmeterol 1 each IH BID 08/31/20 08/31/20 Unknown History [Fluticasone-Salmeterol 500-50] Tiotropium Franklin [Spiriva] 18 mcg IH QDAY 08/31/20 08/31/20 Unknown History Famotidine [Pepcid] 20 mg PO QDAY #30 tablet 09/01/20 Unknown Rx Montelukast [Singulair] 10 mg PO QHS #30 tablet 09/01/20 Unknown Rx Polymyxin B Sulf/Trimethoprim 1 drop OP Q3H 09/01/20 Unknown Rx [Polytrim Eye Drops] Prednisone [predniSONE 10 mg 10 mg PO .TAPER #1 tab.ds.pk 09/01/20 Unknown Rx (6-Day Pack, 21 Tabs)] ED Physical Exam - General Limitations: No Limitations General appearance: alert, in no apparent distress - Head Head exam: Present: atraumatic, normocephalic - Eye Eye exam: Present: normal appearance - ENT ENT exam: Present: mucous membranes moist - Neck Neck exam: Present: normal inspection - Respiratory Respiratory exam: Present: wheezes, decreased breath sounds. Absent: respiratory distress - Cardiovascular Cardiovascular Exam: Present: regular rate, normal rhythm. Absent: systolic murmur, diastolic murmur, rubs, gallop - GI/Abdominal GI/Abdominal exam: Present: soft, normal bowel sounds - Rectal Rectal exam: Present: deferred - Extremities Exam Extremities exam: Present: normal inspection - Back Exam Back exam: Present: normal inspection - Neurological Exam Neurological exam: Present: alert, oriented X3 - Psychiatric Psychiatric exam: Present: normal affect, normal mood - Skin Skin exam: Present: warm, dry, intact, normal color. Absent: rash ED Course Vital Signs 06/22/22 06/23/22 06/23/22 19:19 01:01 02:39 Temperature 98.3 F 98.3 F Pulse Rate 84 65 70 Pulse Rate [ Throughout] Respiratory 18 18 18 Rate Respiratory Rate [ Throughout] Blood Pressure 195/82 184/81 O2 Sat by Pulse 94 96 82 L Oximetry 06/23/22 06/23/22 06/23/22 02:45 03:01 03:15 Temperature Pulse Rate 69 73 67 Pulse Rate [ Throughout] Respiratory 18 17 22 Rate Respiratory Rate [ Throughout] Blood Pressure 166/66 O2 Sat by Pulse 81 L 80 L 88 Oximetry 06/23/22 06/23/22 06/23/22 03:31 03:40 03:45 Temperature Pulse Rate 70 63 Pulse Rate [ 65 Throughout] Respiratory 19 21 Rate Respiratory 20 Rate [ Throughout] Blood Pressure 166/66 178/149 O2 Sat by Pulse 89 100 Oximetry 06/23/22 06/23/22 04:01 04:15 Temperature Pulse Rate 69 64 Pulse Rate [ Throughout] Respiratory 19 21 Rate Respiratory Rate [ Throughout] Blood Pressure 178/149 150/83 O2 Sat by Pulse 93 87 Oximetry ED Medical Decision Making - Lab Data Result diagrams: 06/23/22 02:56 06/23/22 02:56 - EKG Data -: EKG Interpreted by Ma EKG shows normal: sinus rhythm Rate: normal - EKG Data Interpretation: nonspecific ST-T wave shannon, other (APCc,) - Radiology Data Radiology results: report reviewed, image reviewed - Medical Decision Making work up showed COPD , rt given steriods , imrpoved feels fine going home Critical care attestation.: If time is entered above; I have spent that time in minutes in the direct care of this critically ill patient, excluding procedure time. ED Disposition Clinical Impression: COPD exacerbation, Difficulty breathing, Acute exacerbation of chronic obstructive pulmonary disease (COPD) Disposition: 01 HOME / SELF CARE / HOMELESS Is pt being admited?: No Does the pt Need Aspirin: No Condition: Stable Instructions: Chronic Bronchitis (ED), Chronic Obstructive Pulmonary Disease (ED), Chronic Obstructive Pulmonary Disease
--- NOTE | 2022-06-23 10:58 | Electrocardiograph Report ---
[facility] [place] Test Date: 2022-06-23 Test Time: 02:44:17 Pat Name: MEÑO GARRETT Department: Room: Gender: M Vascular Tech: RICARDO : 1955 Requested By: MORIAH QUINONES Order Number: [id number] Reading MD: Kenneth Dukes Measurements Intervals Spelter Rate: 65 P: 18 MD: 167 QRS: 62 QRSD: 91 T: 168 QT: 382 QTc: 397 Interpretive Statements Sinus rhythm Atrial premature complex Abnormal T, consider ischemia, lateral leads No previous ECG available for comparison Electronically Signed On 06-23-2022 10:57:53 EDT by Kenneth Dukes
== END 2022-06-23 05:42 | disposition home or self-care (01) ==
LOC: ED 19:16
DX: J44.1 Chronic obstructive pulmonary disease with (acute) exacerbation (principal); R06.02 Shortness of breath
CPT/HCPCS: 36415; 71045; 71046; 80053; 80061; 82550; 82553; 83690; 83735; 84484; 85025; 93005; 94640; 96374; 99284; J2930; 94644; J0360